=== PATIENT | female | born 1965 | race Caucasian/White ===

== ENCOUNTER 2020-09-19 19:07 | Inpatient (IN) | payer MEDICAID ==
[~2020-09-19] VITALS: Ht 157.5 cm; Wt 53.6 kg
--- NOTE | 2020-09-19 19:08 | NUR ---
ward 860 from [place] for nausea/vomiting. recently [facility] days ago for L foot wound care. , pt aaox4, denies sob. denies cp. placed on monitor, vss, pending er provider cecil
[2020-09-19] MEDS ORDERED: ONDANSETRON HCL/PF 4 MG/2 ML VIAL ONE (19:22)
--- NOTE | 2020-09-19 19:28 | NUR ---
pt noted soiled on arrival via ems, pt cleaned, repositioned and provided wound care.
[2020-09-19] MEDS ORDERED: ONDANSETRON HCL/PF 4 MG/2 ML VIAL IVP ONE (19:30)
[2020-09-19] MEDS ORDERED: IV NS 0.9% 1,000 ML BAG IV ONE (19:30)
[2020-09-19 19:47] LABS: BASOPHILS # (AUTO) 0.1 /CMM (0.0-0.2); BASOPHILS % (AUTO) 1.1 % (0.0-2.0); EOSINOPHILS % (AUTO) 2.2 % (0.0-6.0); HEMATOCRIT 37 % (33-45); HEMOGLOBIN 11.7 g/dL (11.5-14.8); LYMPHOCYTES # (AUTO) 1.9 /CMM (0.8-4.8); LYMPHOCYTES % (AUTO) 14.7 % (20.0-44.0); MEAN CORPUSCULAR HGB CONC 32 g/dl (31.0-36.0); MEAN CORPUSCULAR VOLUME 81 fL (82-100); MONOCYTES # (AUTO) 0.9 /CMM (0.1-1.30); MONOCYTES % (AUTO) 7.2 % (2.0-12.0); NEUTROPHILS # (AUTO) 9.8 /CMM (1.8-8.9); NEUTROPHILS % (AUTO) 74.8 % (43.0-81.0); PLATELET COUNT (AUTO) 478 /CMM (150-450); RED BLOOD CELL COUNT(AUTO) 4.52 MIL/uL (4.0-5.2); WHITE BLOOD COUNT (AUTO) 13.1 K/uL (4.3-11.0)
[2020-09-19 19:58] LABS: CALCIUM, SERUM 8.5 mg/dL (8.5-10.1); CARBON DIOXIDE 32 mmol/L (21-32); CHLORIDE 102 mmol/L (98-107); CREATININE 0.8 mg/dL (0.6-1.3); GLUCOSE 333 mg/dL (74-106); POTASSIUM 4.7 mmol/L (3.5-5.1); SODIUM SERUM 135 mmol/L (136-145); UREA NITROGEN, BLOOD 16 mg/dL (7-18)
[2020-09-19] MEDS ORDERED: VANCOMYCIN 1 GM in IV D5W 250 ML IV ONE (20:00)
[2020-09-19] MEDS ORDERED: CEFEPIME 1 GM in IV D5W 50 ML IV ONE (20:00)
[2020-09-19 20:04] LABS: ALANINE AMINOTRANSFERASE 11 U/L (12-78); ALBUMIN 1.7 g/dL (3.4-5.0); ALCOHOL, BLOOD < 3 mg/dL (0-0); ALKALINE PHOSPHATASE 147 U/L (46-116); ASPARTATE AMINOTRANSFERASE 17 U/L (15-37); BILIRUBIN,DIRECT 0.1 mg/dL (0.0-0.2); BILIRUBIN,TOTAL 0.2 mg/dL (0.2-1.0); LIPASE 168 U/L (73-393); TOTAL PROTEIN, SERUM 8.1 g/dL (6.4-8.2)
--- NOTE | 2020-09-19 20:12 | NUR ---
COVID SWAB SENT
[2020-09-19] MEDS ORDERED: VANCOMYCIN 1 GM VIAL ONE (20:33)
--- NOTE | 2020-09-19 21:24 | NUR ---
pt assigned to 111-1
--- NOTE | 2020-09-19 21:48 | NUR ---
REPORT GIVEN TO ANKUSH DICKENS FOR MELVIN PT WILL BE TRANSPORTED TO 1ST FLOOR
[2020-09-19] MEDS ORDERED: ZOLPIDEM TARTRATE 5 MG TABLET PO PRN (22:00)
[2020-09-19] MEDS ORDERED: MAGNESIUM HYDROXIDE 30 ML UDC PO PRN (22:00)
[2020-09-19] MEDS ORDERED: Z GUARD REMEDY 2 OZ OINT TP PRN (22:00)
[2020-09-20] VITALS: BP 154/79
[2020-09-20] MEDS: ENOXAPARIN SODIUM 40 MG/0.4 ML DISP.SYRIN SQ SCH ×2 (00:23→22:00)
[2020-09-20] MEDS: HYDROCODONE/APAP 5/325MG TABLET PO PRN ×4 (00:34→22:32)
--- NOTE | 2020-09-20 02:49 | NUR ---
RN notes Admitted from ER via stretcher accompanied by two staff with diagnosis of wounds and bilateral lower extremities cellulities. Alert and oriented, able to verbalize needs. On room air, tolerating well. Breathing even and unlabored. Complaint of pain at right hip and bilateral lower extremities. [place] given and ambien, with help. Skin assessment done (see pictures). Vital signs WNL. Kept clean and dry. Needs attended. Will endorse to next shift for continuity of care.
[2020-09-20 04:00] VITALS: BP 146/63
[2020-09-20 06:04] LABS: CALCIUM, SERUM 7.7 mg/dL (8.5-10.1); CREATININE 0.9 mg/dL (0.6-1.3); MAGNESIUM 1.4 mg/dL (1.8-2.4); PHOSPHORUS 4.3 mg/dL (2.5-4.9); POTASSIUM 4.6 mmol/L (3.5-5.1)
[2020-09-20 06:10] LABS: BASOPHILS # (AUTO) 0.2 /CMM (0.0-0.2); BASOPHILS % (AUTO) 1.2 % (0.0-2.0); EOSINOPHILS % (AUTO) 3.1 % (0.0-6.0); HEMATOCRIT 32 % (33-45); HEMOGLOBIN 10.1 g/dL (11.5-14.8); LYMPHOCYTES # (AUTO) 3.4 /CMM (0.8-4.8); LYMPHOCYTES % (AUTO) 24.9 % (20.0-44.0); MEAN CORPUSCULAR HGB CONC 32 g/dl (31.0-36.0); MEAN CORPUSCULAR VOLUME 82 fL (82-100); MONOCYTES # (AUTO) 1.1 /CMM (0.1-1.30); MONOCYTES % (AUTO) 8.2 % (2.0-12.0); NEUTROPHILS # (AUTO) 8.6 /CMM (1.8-8.9); NEUTROPHILS % (AUTO) 62.6 % (43.0-81.0); PLATELET COUNT (AUTO) 394 /CMM (150-450); RED BLOOD CELL COUNT(AUTO) 3.89 MIL/uL (4.0-5.2); WHITE BLOOD COUNT (AUTO) 13.7 K/uL (4.3-11.0)
--- NOTE | 2020-09-20 07:05 | NUR ---
RN OPENING NOTES RECEIVED PT AWAKE, A/O X4. STABLE ON ROOM AIR. NO SOB OR ANY SIGNS OF DISTRESS. WHEELCHAIR BOUND. IV ACCESS AT LAC #20 INTACT, PATENT AND FLUSHED. SAFETY MEASURES IN PLACE. CALL LIGHT WITHIN REACH. BED LOCKED AND AT LOWEST POSITION WITH SIDE RAILS UP X3. WILL CONTINUE TO MONITOR.
[2020-09-20 08:00] VITALS: BP 146/55
--- NOTE | 2020-09-20 08:00 | NUR ---
RN NOTES COMPLAINS OF PAIN FOR LOWER EXTREMITIES. PAIN SCALE OF 7/10. NORCO GIVEN ORDERED.
--- NOTE | 2020-09-20 09:55 | NUR ---
WOUND CARE CONSULT: PT PRESENTS WITH MULTIPLE WOUNDS INCLUDING BILATERAL BUTTOCK STAGE 4 ULCERS AND FOOT WOUNDS, PRESENT ON ADMISSION. LOWER LEG REDNESS AND SWELLING NOTED, PRESENT ON ADMISSION. SURGICAL AND DPM CONSULTS CALLED TO DR ROBB AND DR MCCOLLUM. RECOMMENDATIONS MADE FOR SKIN PROTECTION. DISCUSSED WITH NURSING STAFF. MD IN AGREEMENT WITH PLAN OF CARE. PT TO BE PLACED ON MATHESON ISOFLEX LOW AIRLOSS BED. Addendum: 09/20/20 at 1005 by MALIK VALVERDE WNDNU CORRECTION: PT TO BE PLACED ON FIRST STEP LOW AIRLOSS MATTRESS.
[2020-09-20] MEDS: Magnesium 1GM/D5W 100ML PREMIX 100 ML IV SCH ×4 (10:50→13:00)
--- NOTE | 2020-09-20 11:32 | NUR ---
Social Service Consult: director of maternity services consult requested for homelessness. Patient is a 54-year-old, female. SW met with the patient at her hospital bed in the med-surg unit. Patient was alert and oriented x4. Patient was resting. Per patients chart, patient was brought to the hospital by ambulance on 09/19/20 for nausea and vomiting. Patient recently left AMA from [facility] and has been on the streets for the last 3 days. Patient is currently homeless and stated that she has been homeless for the last 7 years. 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 Patient currently has no source of income or social support. SW asked patient if she has visited shelters in the past and patient stated that she has been to shelters before and does not plan to go to one in the future. Patient feels that she can take better care of herself on the streets and mentioned that the streets are safer. Patient stated that she is independent with her ADL's. SW assessed patients history of substance use and patient stated that she smokes cigarettes occasionally (5-6 cigarettes) when she can obtain them. Patient stated that she has been smoking cigarettes since age 11. SW asked patient if she has a history of mental illness and patient denies history. Patient denies hallucinations or delusions. Patient denies suicidal or homicidal ideation. SW asked patient if he is currently experiencing suicidal ideation and patient stated that he is currently having suicidal ideation with a plan to jump into traffic and has been feeling depressed. Patient denies any homicidal ideation. SW discussed homeless and substance use resources with the patient. Patient declined the resources and stated, I dont need them, Amber been to these places before. SW asked patient to sign the homeless waiver. Patient signed the homeless waiver and SW filed the waiver in the patients chart. SW discussed discharge plan with the patient and patient stated that she will return to the streets. Patient stated that she can take the bus and will be using her wheelchair. PLAN: Patient stated that she will return to prior living arrangements on the streets. No further SS intervention at this time, however SW will remain available as needed. Addendum: 09/27/20 at 1551 by KAM LAUGHLIN Note regarding suicidal ideation was entered incorrectly. Patient is not suicidal.
[2020-09-20] MEDS: ALPRAZOLAM 0.25 MG TABLET PO PRN (12:27)
--- NOTE | 2020-09-20 12:36 | NUR ---
RN NOTES PT SAID SHES HAVING ANXIETY. PAGED DR. GRAHAM, ORDERED XANAX .25 Q12 PRN. CARRIED OUT. PT SPIT OUT THE MEDICATION. WASTED WITH CHARGE NURSE.
--- NOTE | 2020-09-20 14:00 | NUR ---
RN NOTES PT SAYING BAD WORDS TOWARDS DOCTOR, NURSES AND FIELD CONTACT TECHNICIAN. PT IS VERY NON COMPLIANT, WANTED TO SIGN AMA FORM. INFORMED DR. GRAHAM, ODERED PSYCH CONSULT. CARRIED OUT.
--- NOTE | 2020-09-20 14:10 | NUR ---
RN NOTES PT DOESN'T WANT TO BE TOUCHED, DOES NOT WANT TO BE CLEANED. CURSING NURSES AND HEARING SCREENER. CHARGE NURSE AWARE.
[2020-09-20 16:00] VITALS: BP 141/69
[2020-09-20] MEDS ORDERED: SILVER SULFADIAZINE CREAM 400 GM JAR TP SCH (18:30)
--- NOTE | 2020-09-20 18:46 | NUR ---
RN CLOSING NOTES NO SIGNIFICANT CHANGES THROUGHOUT THE SHIFT. STABLE ON ROOM AIR. NO SOB. NO PAIN REPORTED AT THIS TIME. PT REQUESTED TO BE CLEANED. REFUSED TO PUT DRY DRESSING ON BLE. REFUSED TO SIGN CONSENT FOR DEBRIDEMENT AT THIS MOMENT. ALL DUE MEDS GIVEN. NEEDS ATTENDED. SAFETY MEASURES STILL IN PLACE. WILL ENDORSE TO NIGHT RN FOR MELVIN.
[2020-09-20] MEDS: SILVER SULFADIAZINE CREAM 25 GM TUBE TP SCH (18:56)
[2020-09-20] MEDS: CEFEPIME 2 GM in IV D5W 100 ML IV SCH (18:57)
--- NOTE | 2020-09-20 19:30 | NUR ---
RN NOTE NOTED PATIENT BEING COMBATIVE, SCREAMING, COMPLAINS OF PAIN SAYING NORCO WAS INEFFECTIVE AND REQUESTING FOR A STRONGER PAIN MEDICATION. DR HUFF WAS NOTIFIED. NO NEW ORDERS RECEIVED. LOGISTICS OPERATIONS DIRECTOR AWARE.
--- NOTE | 2020-09-20 19:30 | NUR ---
RN NOTE RECEIVED PATIENT IN BED, VERY COMBATIVE AND SAYS INAPPROPRIATE WORDS, KEPT ASKING FOR PAIN MEDICATON WHICH WAS ADMINISTERED AT 1832. EXPLAINED NEXT DOSE NOT DUE UNTIL AFTER 4HRS. PATIENT'S BREATHING IS EVEN AND UNLABORED. SATURATION 95% ON ROOM AIR, HR IS 78. NOTED IV SITE AT RAC 20G, PATENT AND FLUSHING, NO S/S OF INFECTION OR INFILTRATION. MULTIPLE WOUND NOTED AT BLE. SAFETY MEASURES IMPLEMENTED. PATIENT BED ALARM IS ON. HEAD OF BED ELEVATED. BED IS LOCKED, IN LOWEST POSITION AND SIDE RAILS UP. CALL LIGHT WITHIN REACH OF THE PATIENT. WILL CONTINUE TO MONITOR AND REASSESS FOR ANY CHANGES.
[2020-09-20] MEDS: VANCOMYCIN HCL 0.75 GM in IV D5W 250 ML IV SCH (19:38)
[2020-09-20 20:00] VITALS: BP 147/67
--- NOTE | 2020-09-20 21:00 | NUR ---
RN NOTE PATIENT REFUSED LOW AIRLOSS MATTRESS AND WOUND TREATMENT. KEPT SCREAMING AND CURSING EVERYONE. SAID SHE WANTED TO LEAVE THE HOSPITAL. ASKED TO SIGN AMA FORM BUT REFUSED. WILL CONTINUE TO MONITOR PATIENT.
[2020-09-21] MEDS: diphenhydrAMINE HCL 25 MG CAPSULE PO PRN ×2 (00:58→19:39)
[2020-09-21] MEDS: HYDROCODONE/APAP 5/325MG TABLET PO PRN ×3 (05:04→23:28)
[2020-09-21 06:39] LABS: CALCIUM, SERUM 7.4 mg/dL (8.5-10.1); CREATININE 0.8 mg/dL (0.6-1.3); MAGNESIUM 1.6 mg/dL (1.8-2.4); POTASSIUM 4.7 mmol/L (3.5-5.1)
--- NOTE | 2020-09-21 07:15 | NUR ---
RN OPENING NOTES PATIENT RECEIVED RESTING IN SEMI-FOWLERS POSITION. PATIENT ON ROOM AIR TOLERATING WELL. NO SOB OR PAIN REPORTED AT THIS TIME. SAFETY MEASURES IMPLEMENTED, BED LOCKED IN LOWEST POSITION, SIDE RAILS UP X2, CALL LIGHT WITHIN REACH. WILL CONTINUE TO MONITOR AND PROVIDE CARE THROUGHOUT SHIFT.
--- NOTE | 2020-09-21 07:27 | NUR ---
RN NOTE NO SIGNIFICANT CHANGES THROUGHOUT THE SHIFT. STABLE ON ROOM AIR. NO SOB. REQUESTED NORCO AT 0504. REFUSED WOUND TREATMENT AND LOW AIRLOSS MATTRESS. CONSENT FOR WOUND DEBRIDEMENT WAS SIGNED, PLACED ON CHART. SAFETY MEASURES STILL IN PLACE. ENDORSED TO FRANKY DICKENS FOR CONTINUATION OF CARE.
[2020-09-21 08:00] VITALS: BP 169/74
[2020-09-21] MEDS: VANCOMYCIN HCL 0.75 GM in IV D5W 250 ML IV SCH ×3 (08:00→16:00)
[2020-09-21] MEDS: SILVER SULFADIAZINE CREAM 25 GM TUBE TP SCH ×2 (09:00→17:09)
[2020-09-21] MEDS: DAKINS QUARTER STRENGTH (0.125%) 480 ML BOTTLE TOP SCH (09:00)
[2020-09-21] MEDS: THERAHONEY GEL 1.5 OZ TUBE TP SCH (09:00)
[2020-09-21] MEDS: CEFEPIME 2 GM in IV D5W 100 ML IV SCH ×2 (09:00→21:19)
[2020-09-21] MEDS: Magnesium 1GM/D5W 100ML PREMIX 100 ML IV SCH ×2 (09:30→10:30)
--- NOTE | 2020-09-21 10:36 | NUR ---
patient refuses iv antibiotics and wound care treatment. patient persistently states to leave her alone and do not touch her. education regarding wound care and antibiotic treatment as well as pros and cons of refusing treatment provided for client. will continue to persuade patient to continue hospitalization treatment.
--- NOTE | 2020-09-21 14:14 | NUR ---
patient refused vital signs.
[2020-09-21] MEDS: ALPRAZOLAM 0.25 MG TABLET PO PRN (17:08)
--- NOTE | 2020-09-21 18:58 | NUR ---
RN CLOSING NOTES PATIENT RESTING IN SEMI-FOWLERS POSITION. PATIENT ON ROOM AIR TOLERATING WELL. NO SOB OR PAIN REPORTED AT THIS TIME. SAFETY MEASURES IMPLEMENTED, BED LOCKED IN LOWEST POSITION, SIDE RAILS UP X2, CALL LIGHT WITHIN REACH. VANCOMYCIN ADMINISTERED AFTER PATIENT HAD REFUSED EARLIER IN AM AT 1600. WILL ENDORSE CARE TO UPCOMING SHIFT.
--- NOTE | 2020-09-21 19:00 | NUR ---
RN NOTE RECEIVED PATIENT IN BED, AO X 4, BREATHING IS EVEN AND UNLABORED. SATURATION 94% ON ROOM AIR, HR IS 73. NOTED IV SITE AT RAC 20G, PATENT AND FLUSHING, NO S/S OF INFECTION OR INFILTRATION. MULTIPLE WOUNDS NOTED AT BLE, DRESSING INTACT. SAFETY MEASURES IMPLEMENTED. PATIENT BED ALARM IS ON. HEAD OF BED ELEVATED. BED IS LOCKED, IN LOWEST POSITION AND SIDE RAILS UP. CALL LIGHT WITHIN REACH OF THE PATIENT. WILL CONTINUE TO MONITOR AND REASSESS FOR ANY CHANGES.
--- NOTE | 2020-09-21 19:30 | NUR ---
RN NOTE PER FRANKY DICKENS, PATIENT REFUSED 0800 DOSE OF VANCOMYCIN IV, PATIENT AGREED TO RECEIVED THE DOSE AND WAS ADMINISTERED AT 1600. TELEPHONE CALL TO PHARMACY AT EXT 0428, NO ANSWER AFTER SEVERAL ATTEMPTS. TELEPHONE CALL TO [facility] AT [phone] AT 1932, SPOKE TO ZORA REGARDING TIME OF NEXT DOSE, WAS ADVISED TO GIVE NEXT DOSE AT 0400, AND THERE IS NO NEED FOR TROUGH 1 HOUR PRIOR TO 0400 DOSE PATIENT HAS A MISSED DOSE. ID MD, INDEX CLERK MADE AWARE.
[2020-09-21 20:00] VITALS: BP 169/70
[2020-09-21] MEDS: ACETAMINOPHEN 325 MG TABLET PO PRN (21:14)
[2020-09-21] MEDS: ENOXAPARIN SODIUM 40 MG/0.4 ML DISP.SYRIN SQ SCH (21:26)
[2020-09-22] MEDS: VANCOMYCIN HCL 0.75 GM in IV D5W 250 ML IV SCH ×2 (04:21→16:00)
[2020-09-22 06:28] LABS: CALCIUM, SERUM 7.9 mg/dL (8.5-10.1); CREATININE 0.8 mg/dL (0.6-1.3); MAGNESIUM 1.4 mg/dL (1.8-2.4); POTASSIUM 4.5 mmol/L (3.5-5.1)
--- NOTE | 2020-09-22 07:20 | NUR ---
RN OPENING NOTES PATIENT RECEIVED RESTING IN RIGHT LATERAL POSITION. PATIENT ON ROOM AIR TOLERATING WELL. NO SOB OR PAIN REPORTED AT THIS TIME. LEFT WRIST 22 G NOTED PATENT AND INTACT. SAFETY MEASURES IMPLEMENTED, BED LOCKED IN LOWEST POSITION, SIDE RAILS UP X2, CALL LIGHT WITHIN REACH. WILL CONTINUE TO MONITOR AND PROVIDE CARE THROUGHOUT SHIFT.
[2020-09-22 08:00] VITALS: BP 174/67
[2020-09-22] MEDS: CEFEPIME 2 GM in IV D5W 100 ML IV SCH ×2 (08:45→20:55)
[2020-09-22] MEDS: ALPRAZOLAM 0.25 MG TABLET PO PRN ×2 (08:45→17:25)
[2020-09-22] MEDS: HYDROCODONE/APAP 5/325MG TABLET PO PRN ×2 (08:45→17:17)
[2020-09-22] MEDS: DAKINS QUARTER STRENGTH (0.125%) 480 ML BOTTLE TOP SCH (09:00)
[2020-09-22] MEDS: SILVER SULFADIAZINE CREAM 25 GM TUBE TP SCH ×2 (09:00→17:17)
[2020-09-22] MEDS: THERAHONEY GEL 1.5 OZ TUBE TP SCH (09:00)
[2020-09-22] MEDS: Magnesium 1GM/D5W 100ML PREMIX 100 ML IV SCH ×4 (10:38→13:00)
[2020-09-22] MEDS: AMLODIPINE BESYLATE 10 MG TABLET PO SCH (10:38)
[2020-09-22] MEDS: ONDANSETRON HCL/PF 4 MG/2 ML VIAL IVP PRN ×2 (11:32→22:06)
[2020-09-22] MEDS: BLOOD SUGAR DIAGNOSTIC 1 EACH STRIP IN SCH ×3 (12:00→21:50)
[2020-09-22] MEDS ORDERED: Magnesium 1GM/D5W 100ML PREMIX 100 ML IV SCH (12:00)
[2020-09-22] MEDS ORDERED: DEXTROSE 50%-WATER 50 ML DISP.SYRIN IV PRN (12:00)
[2020-09-22] MEDS ORDERED: *INSULIN REGULAR(HUMULIN R)HUM 100 UNIT/ML VIAL SQ PRN (12:00)
[2020-09-22] MEDS: METFORMIN 500 MG TABLET PO SCH ×2 (12:00→17:00)
[2020-09-22] MEDS: ACETAMINOPHEN 325 MG TABLET PO PRN ×2 (12:07→20:55)
[2020-09-22] MEDS: GLUCERNA SHAKE 237 ML CAN PO SCH (17:00)
--- NOTE | 2020-09-22 19:00 | NUR ---
RN OPENING NOTE RECEIVED PATIENT IN BED RESTING ALERT ORIENTED X4 VERBALLY RESPONSIVE ON ROOM AIR O2:93% IV SITE IS ON LEFT UPPER ARM MIDLINE INTACT PATENT,INCONTINENT TO BOWEL/BLADDER SAFETY MEASURE IMPLEMENT CALL LIGHT WITHIN REACH,BED IN LOW POSITION AND LOCKED,BED ALARM IS ON CONTINUE TO MONITOR.
--- NOTE | 2020-09-22 19:06 | NUR ---
RN CLOSING NOTES PATIENT RECEIVED RESTING IN RIGHT LATERAL POSITION. PATIENT ON ROOM AIR TOLERATING WELL. NO SOB OR PAIN REPORTED AT THIS TIME. LEFT WRIST 22 G NOTED PATENT AND INTACT. SAFETY MEASURES IMPLEMENTED, BED LOCKED IN LOWEST POSITION, SIDE RAILS UP X2, CALL LIGHT WITHIN REACH. WILL ENDORSE CARE TO UPCOMING SHIFT.
[2020-09-22 20:00] VITALS: BP 145/67
[2020-09-22] MEDS: ENOXAPARIN SODIUM 40 MG/0.4 ML DISP.SYRIN SQ SCH (21:53)
[2020-09-22] MEDS: INSULIN REGULAR, HUMAN 100 UNIT/ML 3 ML VIAL SQ PRN (22:04)
[2020-09-23] MEDS: HYDROCODONE/APAP 5/325MG TABLET PO PRN ×2 (00:40→11:43)
[2020-09-23] MEDS: VANCOMYCIN HCL 0.75 GM in IV D5W 250 ML IV SCH ×2 (03:23→16:41)
--- NOTE | 2020-09-23 06:35 | NUR ---
RN OPENING NOTE PATIENT REMAINS ON ALERT ORIENTED X4 VERBALLY RESPONSIVE ON ROOM AIR NO SOB NOT ACUTE DISTRESS NOTED,ALL DUE MEDS GIVEN MD ORDERED KEEP CLEAN AND DRY ALL THE TIME,ENDORSE NEXT COMING SHIFT FOR CONTINUATION OF CARE.
--- NOTE | 2020-09-23 07:30 | NUR ---
MS RN AM NOTE RECEIVED PATIENT IN BED, AO X 4, ON ROOM AIR, RESPIRATION UNLABORED. SATURATION 96%, DENIES PAIN AT THIS TIME, LEFT UPPER ARM MIDLINE, FLUSHES WELL, SITE CLEAR, SEE NURSING FLOWSHEET FOR SKIN ISSUES, MULTIPLE WOUNDS NOTED AT BLE, DRESSING INTACT. SAFETY MEASURES IMPLEMENTED. PATIENT BED ALARM IS ON. HEAD OF BED ELEVATED. BED IS LOCKED, IN LOWEST POSITION AND SIDE RAILS UP. CALL LIGHT WITHIN REACH OF THE PATIENT. PLAN OF CARE DISCUSSED WITH PATIENT, NEEDS FURTHER TEACHINGS.WILL CONTINUE TO MONITOR AND REASSESS FOR ANY CHANGES.
[2020-09-23 07:31] LABS: CALCIUM, SERUM 8.2 mg/dL (8.5-10.1); CREATININE 0.8 mg/dL (0.6-1.3); MAGNESIUM 2.3 mg/dL (1.8-2.4); POTASSIUM 4.7 mmol/L (3.5-5.1)
[2020-09-23] MEDS: BLOOD SUGAR DIAGNOSTIC 1 EACH STRIP IN SCH ×4 (07:44→21:46)
--- NOTE | 2020-09-23 07:45 | NUR ---
RN NOTES BLOOD SUGAR CHECKED 146 MG/DL, REFUSED INSULIN, REFUSED BREAKFAST.
[2020-09-23] MEDS: GLUCERNA SHAKE 237 ML CAN PO SCH ×3 (07:58→16:41)
[2020-09-23 08:00] VITALS: BP 183/76
[2020-09-23] MEDS: AMLODIPINE BESYLATE 10 MG TABLET PO SCH (08:41)
[2020-09-23] MEDS: METFORMIN 500 MG TABLET PO SCH ×2 (08:41→16:41)
[2020-09-23] MEDS: DAKINS QUARTER STRENGTH (0.125%) 480 ML BOTTLE TOP SCH (08:42)
[2020-09-23] MEDS: THERAHONEY GEL 1.5 OZ TUBE TP SCH (08:42)
[2020-09-23] MEDS: SILVER SULFADIAZINE CREAM 25 GM TUBE TP SCH ×2 (08:42→16:42)
[2020-09-23] MEDS: CEFEPIME 2 GM in IV D5W 100 ML IV SCH ×2 (08:43→21:46)
[2020-09-23] MEDS ORDERED: AMLODIPINE BESYLATE 10 MG TABLET PO SCH (09:00)
[2020-09-23 09:30] VITALS: BP 153/78
--- NOTE | 2020-09-23 09:30 | NUR ---
RN NOTES DUE MEDS GIVEN
[2020-09-23] MEDS: LOSARTAN POTASSIUM 50 MG TABLET PO SCH (11:33)
[2020-09-23] MEDS: INSULIN REGULAR, HUMAN 100 UNIT/ML 3 ML VIAL SQ PRN (11:43)
[2020-09-23] MEDS: diphenhydrAMINE HCL 25 MG CAPSULE PO PRN (14:32)
[2020-09-23 16:00] VITALS: BP 120/69
[2020-09-23] MEDS: ACETAMINOPHEN 325 MG TABLET PO PRN (17:11)
--- NOTE | 2020-09-23 18:27 | NUR ---
MS RN CLOSING NOTE PATIENT RESTING IN BED, AO X 4, ON ROOM AIR, RESPIRATION UNLABORED. NO SOB, DENIES PAIN AT THIS TIME, LEFT UPPER ARM MIDLINE, FLUSHES WELL, SITE CLEAR, MULTIPLE WOUNDS NOTED AT BLE, DRESSING INTACT. DEBRIDEMENT DONE BY DR. MCCOLLUM EARLIER. SAFETY MEASURES IMPLEMENTED. PATIENT BED ALARM IS ON. HEAD OF BED ELEVATED. BED IS LOCKED, IN LOWEST POSITION AND SIDE RAILS UP. CALL LIGHT WITHIN REACH OF THE PATIENT. ALL NEEDS MET, NO OTHER SIGNIFICANT CHANGE IN CONDITION NOTED. WILL ENDORSE TO NEXT SHIFT FOR MELVIN.
--- NOTE | 2020-09-23 19:30 | NUR ---
RN OPENING NOTE REC'D PT IN BED. RESTING. EASILY AWAKENS. PT IS A/O X4. ON ROOM AIR, TOLERATING WELL. NO S/S OF DISTRESS OR SOB. PT IS MED SURG MONITORING. PT HAS CHERELLE MIDLINE, SALINE LOCK. FLUSHED. INTACT. DRESSINGS NOTED ON JOSE BUTTOCKS, JOSE FEET S/P DEBRIDEMENT TODAY. PT DENIES PAIN AT THIS TIME. SAFETY MEASURES IN PLACE. HOB ELEVATED. SIDE RAILS UP X2, BED LOCKED IN LOWEST POSITION. BED ALARM ON. CALL LIGHT WITHIN REACH. WILL CONT TO MONITOR
[2020-09-23 20:00] VITALS: BP 153/57
[2020-09-23] MEDS: ENOXAPARIN SODIUM 40 MG/0.4 ML DISP.SYRIN SQ SCH (21:48)
[2020-09-24] MEDS: diphenhydrAMINE HCL 25 MG CAPSULE PO PRN ×2 (01:16→12:30)
--- NOTE | 2020-09-24 01:16 | NUR ---
RN NOTE PT C/O OF ITCHINESS, REQUESTS MEDICATION. BENADRYL PRN ADMINISTERED ORDERED.
--- NOTE | 2020-09-24 02:58 | NUR ---
RN NOTE TRANSFERRED PT IN STALE CONDITION TO ROOM 309, WITH ALL BELONGINGS AND MEDICATIONS AT BEDSIDE. REPORT GIVEN TO FREEDOM DICKENS FOR CONTINUATION OF CARE. Addendum: 09/24/20 at 0339 by ALICIA BORRERO RN TRANSFERRED PT IN STABLE* CONDITION
--- NOTE | 2020-09-24 03:00 | NUR ---
MSREsther RECEIVED VIA BED 54 Y/O FEMALE DX OF LOWER EXT CELLULITIS. A/OX4, COOPERATIVE OF THIS TIME. ORIENTED TO ROOM FACILITY, OWN WHEELCHAIR AT BEDSIDE. NO NEEDS FOR NOW. CALL LIGHT WITHIN REACH.
[2020-09-24 03:17] VITALS: BP 164/64
[2020-09-24 03:30] VITALS: BP 164/64
--- NOTE | 2020-09-24 04:05 | NUR ---
MSRN HAVE ICU CN CHECKED MIDLINE PLACEMENT, UNABLE TO FLUSH. DRESSING CHANGED BY ICU CN, WAS ABLE TO OBTAIN BLOOD RETURN ABLE TO FLUSH, VANCOMYCIN CONTINUED. ALL NEEDS ATTENDED.
[2020-09-24] MEDS: VANCOMYCIN HCL 0.75 GM in IV D5W 250 ML IV SCH ×2 (04:14→15:00)
--- NOTE | 2020-09-24 06:52 | NUR ---
MSRN IV TO HL. REFUSED BLOOD DRAW OF THIS TIME. WANTED AFTER BREAKFAST.
[2020-09-24 08:00] VITALS: BP 156/92
--- NOTE | 2020-09-24 08:03 | NUR ---
MS RN OPENING NOTE RECEIVED PATIENT IN BED, RESTING. EASILY AWAKENS. A/O X4. ON ROOM AIR - TOLERATING WELL. NO DISTRESS OR SOB NOTED. IV ACCESS TO LEFT UA MIDLINE, SALINE LOCK. FLUSHED. INTACT. PATIENT DENIES PAIN AT THIS TIME. SAFETY MEASURES IN PLACE. HOB ELEVATED. SIDE RAILS UP X2, BED LOCKED IN LOWEST POSITION. BED ALARM ON. CALL LIGHT WITHIN REACH. WILL CONTINUE TO MONITOR
[2020-09-24] MEDS: CEFEPIME 2 GM in IV D5W 100 ML IV SCH ×2 (08:24→21:13)
[2020-09-24] MEDS: METFORMIN 500 MG TABLET PO SCH ×2 (08:25→16:41)
[2020-09-24] MEDS: BLOOD SUGAR DIAGNOSTIC 1 EACH STRIP IN SCH ×4 (08:26→21:13)
[2020-09-24] MEDS: GLUCERNA SHAKE 237 ML CAN PO SCH ×3 (08:27→17:11)
[2020-09-24] MEDS: INSULIN REGULAR, HUMAN 100 UNIT/ML 3 ML VIAL SQ PRN ×2 (08:31→17:20)
[2020-09-24] MEDS: LOSARTAN POTASSIUM 50 MG TABLET PO SCH (08:36)
[2020-09-24] MEDS: AMLODIPINE BESYLATE 10 MG TABLET PO SCH (08:36)
[2020-09-24] MEDS: DAKINS QUARTER STRENGTH (0.125%) 480 ML BOTTLE TOP SCH (08:38)
[2020-09-24] MEDS: THERAHONEY GEL 1.5 OZ TUBE TP SCH (08:39)
[2020-09-24] MEDS: SILVER SULFADIAZINE CREAM 25 GM TUBE TP SCH ×2 (09:01→17:23)
[2020-09-24] MEDS: HYDROCODONE/APAP 5/325MG TABLET PO PRN ×2 (10:48→21:23)
[2020-09-24 11:33] LABS: BASOPHILS # (AUTO) 0.1 /CMM (0.0-0.2); EOSINOPHILS % (AUTO) 4.8 % (0.0-6.0); HEMATOCRIT 31 % (33-45); HEMOGLOBIN 9.9 g/dL (11.5-14.8); LYMPHOCYTES # (AUTO) 1.7 /CMM (0.8-4.8); LYMPHOCYTES % (AUTO) 18.4 % (20.0-44.0); MEAN CORPUSCULAR HGB CONC 32 g/dl (31.0-36.0); MEAN CORPUSCULAR VOLUME 82 fL (82-100); MONOCYTES # (AUTO) 0.7 /CMM (0.1-1.30); MONOCYTES % (AUTO) 7.5 % (2.0-12.0); NEUTROPHILS # (AUTO) 6.3 /CMM (1.8-8.9); NEUTROPHILS % (AUTO) 68.3 % (43.0-81.0); PLATELET COUNT (AUTO) 309 /CMM (150-450); RED BLOOD CELL COUNT(AUTO) 3.78 MIL/uL (4.0-5.2); WHITE BLOOD COUNT (AUTO) 9.3 K/uL (4.3-11.0)
[2020-09-24 12:03] LABS: CREATININE 0.6 mg/dL (0.6-1.3); MAGNESIUM 1.5 mg/dL (1.8-2.4); PHOSPHORUS 4.2 mg/dL (2.5-4.9); POTASSIUM 3.9 mmol/L (3.5-5.1)
[2020-09-24 16:00] VITALS: BP 153/69
--- NOTE | 2020-09-24 18:39 | NUR ---
MS RN CLOSING NOTE PATIENT CURRENTLY IN BED, AWAKE, A/O X4. STATES HER MIND IS FUZZY AND SOMETIMES CANNOT MANAGE TO FORMULATE WORDS. ON ROOM AIR - TOLERATING WELL. NO DISTRESS OR SOB NOTED. IV ACCESS TO LEFT UA MIDLINE, INTACT AND PATIENT, S/L. DENIES PAIN AT THIS TIME. WOUND CARE DONE. SAFETY MEASURES IN PLACE. HOB ELEVATED. SIDE RAILS UP X2, BED LOCKED IN LOWEST POSITION. BED ALARM ON. CALL LIGHT WITHIN REACH. WILL ENDORSE TO FISCAL TECHNICIAN NURSE FOR MELVIN.
--- NOTE | 2020-09-24 19:30 | NUR ---
MS RN OPENING NOTE RECEIVED PATIENT IN BED. A/OX4. TOLERATING ROOM AIR. RESPIRATIONS ARE EVEN AND UNLABORED. NO S/S SOB NOTED. NO C/O PAIN AT THIS TIME. IN NO APPARENT DISTRESS. IV ACCESS IN CHERELLE MIDLINE PATENT AND SALINE LOCKED. BED IS LOW AND LOCKED, HOB ELEVATED IN SEMI FOWLERS, SIDE RAILS UP X2, CALL LIGHT WITHIN REACH. WILL CONTINUE TO MONITOR THROUGHOUT SHIFT.
[2020-09-24 20:00] VITALS: BP 146/71
[2020-09-24 20:32] VITALS: BP 146/71
--- NOTE | 2020-09-24 21:10 | NUR ---
MS RN NOTE INFORMED DIRECTOR FRAUD JENNIFER PALACIOS THAT PATIENT HAS LOVENOX 40MG SCHEDULE BUT H/H IS 9.9 /. IF LOVENOX SHOULD BE HELD. NO SIGNS OF BLEEDING. SHANE PALACIOS STATES OK TO GIVE.
[2020-09-24] MEDS: ENOXAPARIN SODIUM 40 MG/0.4 ML DISP.SYRIN SQ SCH (21:21)
[2020-09-25 03:24] LABS: BASOPHILS # (AUTO) 0.1 /CMM (0.0-0.2); BASOPHILS % (AUTO) 1.3 % (0.0-2.0); EOSINOPHILS % (AUTO) 5.9 % (0.0-6.0); HEMATOCRIT 35 % (33-45); HEMOGLOBIN 11.1 g/dL (11.5-14.8); LYMPHOCYTES # (AUTO) 2.7 /CMM (0.8-4.8); LYMPHOCYTES % (AUTO) 29.4 % (20.0-44.0); MEAN CORPUSCULAR HGB CONC 32 g/dl (31.0-36.0); MEAN CORPUSCULAR VOLUME 81 fL (82-100); MONOCYTES # (AUTO) 0.7 /CMM (0.1-1.30); MONOCYTES % (AUTO) 7.6 % (2.0-12.0); NEUTROPHILS # (AUTO) 5.2 /CMM (1.8-8.9); NEUTROPHILS % (AUTO) 55.8 % (43.0-81.0); PLATELET COUNT (AUTO) 371 /CMM (150-450); RED BLOOD CELL COUNT(AUTO) 4.25 MIL/uL (4.0-5.2); WHITE BLOOD COUNT (AUTO) 9.3 K/uL (4.3-11.0)
[2020-09-25 03:45] LABS: CALCIUM, SERUM 8.6 mg/dL (8.5-10.1); CREATININE 0.7 mg/dL (0.6-1.3); POTASSIUM 4.3 mmol/L (3.5-5.1)
[2020-09-25] MEDS: VANCOMYCIN HCL 0.75 GM in IV D5W 250 ML IV SCH (04:00)
[2020-09-25] MEDS: BLOOD SUGAR DIAGNOSTIC 1 EACH STRIP IN SCH ×2 (06:35→11:32)
--- NOTE | 2020-09-25 06:40 | NUR ---
MS RN CLOSING NOTE PATIENT RESTING IN BED. A/OX4. REMAINS TOLERATING ROOM AIR. NO RESP DISTRESS. MANAGED PAIN WITH NORCO 5 FOR HEADACHE AND FOOT PAIN. NO DISTRESS. IV ACCESS MAINTAINED IN CHERELLE MIDLINE. BED REMAINS LOW AND LOCKED, HOB ELEVATED IN SEMI FOWLERS, SIDE RAILS UP X2, CALL LIGHT WITHIN REACH. WILL ENDORSE TO ONCOMING SHIFT.
--- NOTE | 2020-09-25 07:33 | NUR ---
MS RN OPENING NOTE PATIENT RESTING IN BED. A/OX4. REMAINS TOLERATING ROOM AIR. NO RESP DISTRESS. MANAGED PAIN WITH NORCO 5 FOR HEADACHE AND FOOT PAIN. NO DISTRESS. IV ACCESS MAINTAINED IN CHERELLE MIDLINE. BED REMAINS LOW AND LOCKED, HOB ELEVATED IN SEMI FOWLERS, SIDE RAILS UP X2, CALL LIGHT WITHIN REACH AND ANSWERED PROMPTLY.
[2020-09-25 07:50] VITALS: BP 162/84
[2020-09-25 08:00] VITALS: BP 162/84
[2020-09-25 08:42] VITALS: BP 162/84
[2020-09-25] MEDS: LOSARTAN POTASSIUM 50 MG TABLET PO SCH (08:42)
[2020-09-25] MEDS: METFORMIN 500 MG TABLET PO SCH (08:42)
[2020-09-25] MEDS: DAKINS QUARTER STRENGTH (0.125%) 480 ML BOTTLE TOP SCH (08:42)
[2020-09-25] MEDS: AMLODIPINE BESYLATE 10 MG TABLET PO SCH (08:42)
[2020-09-25] MEDS: SILVER SULFADIAZINE CREAM 25 GM TUBE TP SCH (08:47)
[2020-09-25] MEDS: THERAHONEY GEL 1.5 OZ TUBE TP SCH (08:47)
[2020-09-25] MEDS: GLUCERNA SHAKE 237 ML CAN PO SCH ×2 (08:50→11:46)
[2020-09-25] MEDS: CEFEPIME 2 GM in IV D5W 100 ML IV SCH (08:50)
[2020-09-25] MEDS: ALPRAZOLAM 0.25 MG TABLET PO PRN (11:32)
[2020-09-25] MEDS ORDERED: VANCOMYCIN HCL 0.75 GM in IV D5W 250 ML IV SCH (14:00)
--- NOTE | 2020-09-25 17:50 | NUR ---
PATIENT LEFT AMA AT 1750 , AMA FORM SIGNED, BELONGINGS ACCOUNTED FOR , REFUSED GROUP HOME AND OTHER RESOURCES. MIDLINE SAFELY REMOVED, CLOTHES GIVEN TO HER AND ESCORTED DOWN AND OUTSIDE ON WHEELCHAIR.
--- NOTE | 2020-09-25 19:21 | NUR ---
RN NOTES PULLED OUT .25MG DOSE OF XANAX FROM [facility], PATIENT SAW AND REFUSED MEDICATION. RETURNED TO [facility] TO WASTE, ACCIDENTLY SELECTED WASTE .5MG INSTEAD OF .25MG DOSE OF XANAX, WITNESS WAS YESSENIA NASSAR RN
== END 2020-09-25 18:00 | disposition left against medical advice (07) | DRG 383 ==
LOC: ER 19:09 → MEDSG1 21:44 → MED 09-24 02:48
PROVIDERS: ADMIT Nurse Practitioner Acute Care; ATTEND Family Medicine
PROC: 05HC33Z Insertion of Infusion Device into Left Basilic Vein, Percutaneous Approach (ICD-10-PCS; 2020-09-22)
PROC: 0JBR0ZZ Excision of Left Foot Subcutaneous Tissue and Fascia, Open Approach (ICD-10-PCS; principal; 2020-09-23)
PROC: 0JBQ0ZZ Excision of Right Foot Subcutaneous Tissue and Fascia, Open Approach (ICD-10-PCS; 2020-09-23)
DX: L03.115 Cellulitis of right lower limb (principal); E43 Unspecified severe protein-calorie malnutrition; L89.224 Pressure ulcer of left hip, stage 4; L89.214 Pressure ulcer of right hip, stage 4; R53.2 Functional quadriplegia; D68.69 Other thrombophilia; E11.51 Type 2 diabetes mellitus with diabetic peripheral angiopathy without gangrene; E11.621 Type 2 diabetes mellitus with foot ulcer; E11.65 Type 2 diabetes mellitus with hyperglycemia; E87.0 Hyperosmolality and hypernatremia; L03.116 Cellulitis of left lower limb; Z59.0 Homelessness; I10 Essential (primary) hypertension; Z68.21 Body mass index [BMI] 21.0-21.9, adult; Z99.3 Dependence on wheelchair; L97.529 Non-pressure chronic ulcer of other part of left foot with unspecified severity; L97.519 Non-pressure chronic ulcer of other part of right foot with unspecified severity; E87.1 Hypo-osmolality and hyponatremia; I87.2 Venous insufficiency (chronic) (peripheral); Z91.14 Patient's other noncompliance with medication regimen; D72.829 Elevated white blood cell count, unspecified; E86.1 Hypovolemia; Z91.19 Patient's noncompliance with other medical treatment and regimen; S31.829A Unspecified open wound of left buttock, initial encounter; S31.819A Unspecified open wound of right buttock, initial encounter; X58.XXXA Exposure to other specified factors, initial encounter; Y92.9 Unspecified place or not applicable; Y99.9 Unspecified external cause status
CPT/HCPCS: 36415; 71045-TC; 80048-TC; 80061-TC; 80076-TC; 80202-TC; 82962-TC; 83605-TC; 83690-TC; 83735-TC; 84100-TC; 85025-TC; 87040-TC; 87081-TC; 93970-TC; A6253; A6403; C9803; G0378; G0480; J0692; J1650; J1815; J2405; J3370; J3475; J7030; J7050; J7060; Q0163; U0003

== ENCOUNTER 2020-10-12 11:24 | Inpatient (IN) | payer MEDICAID ==
[~2020-10-12] VITALS: Ht 152.4 cm; Wt 58.5 kg
[2020-10-12] MEDS ORDERED: MORPHINE SULFATE INJ 2 MG/ML DISP.SYRIN IV ONE (12:00)
[2020-10-12] MEDS ORDERED: ONDANSETRON HCL/PF - ER 4 MG/2 ML VIAL IV ONE (12:00)
[2020-10-12 12:04] LABS: BASOPHILS # (AUTO) 0.2 /CMM (0.0-0.2); BASOPHILS % (AUTO) 0.5 % (0.0-2.0); EOSINOPHILS % (AUTO) 0.1 % (0.0-6.0); HEMATOCRIT 30 % (33-45); HEMOGLOBIN 9.6 g/dL (11.5-14.8); LYMPHOCYTES # (AUTO) 1.3 /CMM (0.8-4.8); LYMPHOCYTES % (AUTO) 4.1 % (20.0-44.0); MEAN CORPUSCULAR HGB CONC 32 g/dl (31.0-36.0); MEAN CORPUSCULAR VOLUME 79 fL (82-100); MONOCYTES # (AUTO) 2.1 /CMM (0.1-1.30); MONOCYTES % (AUTO) 6.4 % (2.0-12.0); NEUTROPHILS # (AUTO) 28.8 /CMM (1.8-8.9); NEUTROPHILS % (AUTO) 88.9 % (43.0-81.0); PLATELET COUNT (AUTO) 694 /CMM (150-450); RED BLOOD CELL COUNT(AUTO) 3.84 MIL/uL (4.0-5.2)
--- NOTE | 2020-10-12 12:06 | NUR ---
SALMA FROM STREET. TO ER BED 7. AAOX3. NOT IN RESP DISTRESS. BROUGHT IN FOR FOOT PAIN AND ABD PAIN. PT WAS DISHEVELLED COVERED WITH FECES. WOUND ON LEFT FOOT NOTED WITH LIVE MAGGOTS MASCERATED SKIN W/ MULTIPLE ULCER PAIN IS 10 /10. PT ALSO NOTED WITH SKIN MASCERATION FROM THE THIGH UP TO THE WAIST. PT FECES HAVE CAKED ON HER SKIN. NOTED PRESSURE ULCER ON HER R HIP. PT CLOTHING STRIPPED OFF. PROVIDED WITH GOOD CLEANING. IV LINE ON R HAND 20G, BLOOD DRAWN AND GIVEN TO PHLEB. PT ON MONITOR
[2020-10-12 12:09] LABS: WHITE BLOOD COUNT (AUTO) 32.4 K/uL (4.3-11.0)
[2020-10-12] MEDS ORDERED: ONDANSETRON HCL/PF 4 MG/2 ML VIAL ONE ×2 (12:10→14:41)
[2020-10-12] MEDS ORDERED: MORPHINE SULFATE INJ 4 MG/ML DISP.SYRIN ONE ×2 (12:11→14:41)
[2020-10-12] MEDS ORDERED: VANCOMYCIN 1 GM VIAL ONE (12:19)
[2020-10-12] MEDS ORDERED: PIPERACILLIN /TAZOBACTAM 3.375 G VIAL IV ONE (12:19)
[2020-10-12 12:24] LABS: ALANINE AMINOTRANSFERASE < 6 U/L (12-78); ALKALINE PHOSPHATASE 144 U/L (46-116); ASPARTATE AMINOTRANSFERASE 9 U/L (15-37); BILIRUBIN,DIRECT 0.1 mg/dL (0.0-0.2); BILIRUBIN,TOTAL 0.2 mg/dL (0.2-1.0); CALCIUM, SERUM 8.9 mg/dL (8.5-10.1); CARBON DIOXIDE 20 mmol/L (21-32); CHLORIDE 101 mmol/L (98-107); CREATININE 1.2 mg/dL (0.6-1.3); POTASSIUM 4.6 mmol/L (3.5-5.1); SODIUM SERUM 131 mmol/L (136-145); TOTAL PROTEIN, SERUM 7.7 g/dL (6.4-8.2); UREA NITROGEN, BLOOD 51 mg/dL (7-18)
[2020-10-12] MEDS ORDERED: IV NS 0.9% 1,000 ML BAG IV ONE (12:30)
[2020-10-12] MEDS ORDERED: VANCOMYCIN 1 GM in IV D5W 250 ML IV ONE (12:30)
[2020-10-12] MEDS ORDERED: PIPERACILLIN /TAZOBACTAM 3.375 G in IV D5W 50 ML IV ONE (12:30)
[2020-10-12 12:31] LABS: ALBUMIN 1.4 g/dL (3.4-5.0); GLUCOSE 375 mg/dL (74-106)
--- NOTE | 2020-10-12 12:35 | NUR ---
us at bedside
--- NOTE | 2020-10-12 12:48 | NUR ---
US NOT COMPLETED D/Y PT REFUSED. MADE AWARE.
[2020-10-12 12:51] LABS: BAND % (MANUAL) 5 % (0.0-5.0); LYMPHOCYTES % (MANUAL) 4 % (16-48); MONOCYTES % (MANUAL) 4 % (0-11.0); NEUTROPHILS % (MANUAL) 87 (42-76)
--- NOTE | 2020-10-12 13:28 | NUR ---
UNABLE TO COLLECT URINE SAMPLE FROM PT. OFFER TO COLLECT VIA CATHETER BUT REFUSED MULTIPLE TIME DESPITE EXPLAINING THE INPORTANCE OF GETTING THE URINE. PT VERBALIZED "I DECLINE"
[2020-10-12 14:30] LABS: ABG BASE EXCESS -5.1 mmol/L; ABG OXYGEN SATURATION 95.1 % (92.0-98.5); ABG PCO2 31.2 mmHg (35.0-45.0); ABG PH 7.401 (7.350-7.450); ABG PO2 87.5 mmHg (75.0-100.0); AaDO2 24.9 mmHg; COHb 1.4 % (0.5-1.5); MetHb 0.3 % (0.0-1.5); O2Hb 93.5 % (94.0-97.0); SITE, ABG Right Radial; VENT MODE, BG ROOM AIR
[2020-10-12] MEDS ORDERED: MORPHINE SULFATE INJ 10 MG/ML DISP.SYRIN IV ONE (15:00)
[2020-10-12] MEDS ORDERED: INSULIN REGULAR, HUMAN 100 UNIT/ML 10 ML VIAL SQ ONE (15:00)
[2020-10-12] MEDS ORDERED: ONDANSETRON HCL/PF 4 MG/2 ML VIAL IV ONE (15:00)
--- NOTE | 2020-10-12 15:00 | NUR ---
Room assignment per House Sup - 118
--- NOTE | 2020-10-12 15:19 | NUR ---
REPORT GIVEN TO CHRISSIE CARRASCO FOR MELVIN
[2020-10-12] MEDS ORDERED: INSULIN REGULAR, HUMAN 100 UNIT/ML 10 ML VIAL ONE (15:21)
[2020-10-12 15:48] LABS: BILIRUBIN,URINE SMALL (NEGATIVE); COLOR,URINE YELLOW (YELLOW); LEUKOCYTE ESTERASE ,URINE MODERATE (NEGATIVE); NITRITE, URINE NEGATIVE (NEGATIVE); PH,URINE 5.5 (5.0-8.0); PROTEIN,URINE >=300 mg/dl (NEGATIVE); UGLUCOSE 100 MG/DL mg/dL (NEGATIVE); UROBILINOGEN,URINE 0.2 EU/dL (0.2)
[2020-10-12 15:54] LABS: BACTERIA,URINE 4+ /HPF (None Seen); RBC,URINE 21-50 /HPF (0-2); SQUAMOUS EPITHELIAL CELL,UR 0-2 /HPF (None Seen); WBC,URINE TOO NUMEROUS TO COUN /HPF (0-3)
[2020-10-12 16:00] VITALS: BP 136/68
[2020-10-12] MEDS ORDERED: ACETAMINOPHEN 325 MG TABLET PO PRN (16:00)
[2020-10-12] MEDS ORDERED: MAGNESIUM HYDROXIDE 30 ML UDC PO PRN (16:00)
[2020-10-12] MEDS ORDERED: Z GUARD REMEDY 2 OZ OINT TP PRN (16:00)
[2020-10-12] MEDS ORDERED: ZOLPIDEM TARTRATE 5 MG TABLET PO PRN (16:00)
[2020-10-12] MEDS ORDERED: ONDANSETRON HCL/PF 4 MG/2 ML VIAL IVP PRN (16:00)
[2020-10-12] MEDS ORDERED: *INSULIN REGULAR(HUMULIN R)HUM 100 UNIT/ML VIAL SQ PRN (16:00)
[2020-10-12] MEDS ORDERED: MAG HYDROX/AL HYDROX/SIMETH 30 ML UDC PO PRN (16:00)
[2020-10-12] MEDS ORDERED: DEXTROSE 50%-WATER 50 ML DISP.SYRIN IV PRN (16:00)
--- NOTE | 2020-10-12 16:24 | NUR ---
pt transported to unit on [place] with emt and rn at bedside with acls protocol. nad noted during transport.
[2020-10-12] MEDS ORDERED: MORPHINE SULFATE INJ 2 MG/ML DISP.SYRIN IV PRN (16:30)
--- NOTE | 2020-10-12 16:30 | NUR ---
RN NOTE PT BROUGHT IN VIA GURNEY, BREATHING RA WITH NO SIGNS OF RESP DISTRESS OR SOB. PT C/O PAIN IN BLE 12/17, WILL ADMIN PAIN MEDS PER ORDERS. PT LLE EDEMA, LT FOOT WOUND ON SOLE, WAIST TO UPPER THIGH MACERATION BILATERALLY, AND RT HIP PRESSURE ULCER
[2020-10-12] MEDS ORDERED: MORPHINE SULFATE INJ 4 MG/ML DISP.SYRIN IV ONE (17:00)
[2020-10-12] MEDS: INSULIN REGULAR, HUMAN 100 UNIT/ML 3 ML VIAL SQ PRN (17:32)
[2020-10-12] MEDS: BLOOD SUGAR DIAGNOSTIC 1 EACH STRIP IN SCH ×2 (17:33→22:56)
[2020-10-12] MEDS: ENOXAPARIN SODIUM 40 MG/0.4 ML DISP.SYRIN SQ SCH (17:33)
--- NOTE | 2020-10-12 17:50 | NUR ---
RN NOTE PT IN 12/17 PAIN, REFUSING TO BE TURNED TO CLEAN HER AND TAKE PICTURES WE HAD ALREADY TURNED HER WHEN DR CLARK CAME IN TO ASSESS PT. WILL ATTEMPT AGAIN BEFORE END OF SHIFT AND WILL ADMIN PAIN MEDS PER ORDERS
--- NOTE | 2020-10-12 19:00 | NUR ---
RN CLOSING NOTES PT STABLE, NO SIGNS OF RESP DISTRESS. ALL PT SAFETY PRECAUTIONS IN PLACE. MELVIN ENDORSED TO SAP BPC DEVELOPER RN
[2020-10-12 20:00] VITALS: BP 127/67
--- NOTE | 2020-10-12 20:19 | NUR ---
TELE-1/MULTI OPERATION FORMING MACHINE SETTER ADMITTING ASSESSMENT WAS LIMITED DUE TO PT BEING UNCOOPERATIVE. PT WILL NOT LET ME TOUCH HER. WILL CONTINUE TO MONITOR.
[2020-10-12] MEDS: CEFEPIME 2 GM in IV D5W 100 ML IV SCH (21:05)
--- NOTE | 2020-10-12 21:05 | NUR ---
RN OPENING NOTES Patient was seen sleeping in bed. Patient is alert and oriented x3. Patient's on room air with no respiratory distress noted. Patient is on a tele monitor and in no cardiac distress. Patient has a right upper arm midline gauge #18, which is intact and patent. Safety measures in place: Bed locked, bed alarm on, side rails up x3, and call light within easy reach from the patient. Will continue to monitor the patient.
[2020-10-12] MEDS ORDERED: CT SWABBABLE VALVE TRANS SET 1 EA INFUS.SET MC ONE (21:12)
[2020-10-12] MEDS ORDERED: IOHEXOL-350 100 ML VIAL IV ONE (21:12)
[2020-10-12] MEDS ORDERED: IV NS 0.9% 250 ML IV ONE (21:12)
[2020-10-12] MEDS: IV NS 0.9% 1,000 ML IV PRN (22:51)
--- NOTE | 2020-10-12 22:55 | NUR ---
RN Notes Patient's blood sugar at 2220 was 30 mg/dL. Patient was given Dextrose as part of her ordered PRN medications. Patient's blood sugar was rechecked at 2255 and was 81 mg/dL. Will continue to monitor the patient.
[2020-10-13] VITALS: BP 102/40
--- NOTE | 2020-10-13 02:46 | NUR ---
RN NOTES Per nurse handoff report, patient has wounds present and that she refused an initial skin assessment and refused to have wound pictures taken as well. Asked the patient if a skin assessment can be performed, but patient still refused to have a skin assessment performed. Will trigger a wound consult and endorse to the next shift nurse.
[2020-10-13 04:00] VITALS: BP 127/63
[2020-10-13] MEDS ORDERED: VANCOMYCIN HCL 0.75 GM in IV D5W 250 ML IV SCH ×3 (06:00→20:00)
[2020-10-13 06:01] LABS: BASOPHILS # (AUTO) 0.1 /CMM (0.0-0.2); BASOPHILS % (AUTO) 0.3 % (0.0-2.0); EOSINOPHILS % (AUTO) 0.5 % (0.0-6.0); HEMATOCRIT 26 % (33-45); HEMOGLOBIN 8.3 g/dL (11.5-14.8); LYMPHOCYTES % (AUTO) 7.9 % (20.0-44.0); MEAN CORPUSCULAR HGB CONC 32 g/dl (31.0-36.0); MEAN CORPUSCULAR VOLUME 79 fL (82-100); MONOCYTES # (AUTO) 1.3 /CMM (0.1-1.30); MONOCYTES % (AUTO) 5.1 % (2.0-12.0); NEUTROPHILS # (AUTO) 22.1 /CMM (1.8-8.9); NEUTROPHILS % (AUTO) 86.2 % (43.0-81.0); PLATELET COUNT (AUTO) 607 /CMM (150-450); RED BLOOD CELL COUNT(AUTO) 3.25 MIL/uL (4.0-5.2); WHITE BLOOD COUNT (AUTO) 25.6 K/uL (4.3-11.0)
[2020-10-13 06:44] LABS: BILIRUBIN,TOTAL 0.1 mg/dL (0.2-1.0); CREATININE 0.9 mg/dL (0.6-1.3); PHOSPHORUS 4.5 mg/dL (2.5-4.9); POTASSIUM 4.2 mmol/L (3.5-5.1); TOTAL PROTEIN, SERUM 5.7 g/dL (6.4-8.2)
--- NOTE | 2020-10-13 06:59 | NUR ---
RN CLOSING NOTES Patient was seen sleeping in bed. Patient is alert and oriented x3. Patient's on room air with no respiratory distress noted. Patient is on a tele monitor and in no cardiac distress. Patient has a right upper arm midline gauge #18, which is intact and patent. Patient's latest magnesium and albumin levels were critical (Magnesium=1.2 and Albumin=1.0). Charge Nurse was made aware and will endorse the day shift doctor. Will endorse this information to the upcoming day shift nurse too.Safety measures in place: Bed locked, bed alarm on, side rails up x3, and call light within easy reach from the patient. Will endorse care to the day shift nurse.
[2020-10-13 07:09] LABS: MAGNESIUM 1.2 mg/dL (1.8-2.4)
--- NOTE | 2020-10-13 07:48 | NUR ---
ROAD TRAIN DRIVER OPENING NOTE PATIENT IS IN BED RESTING, PATIENT IS VERY RUDE AND AGITATED. PATIENT USING INAPPROPRIATE LANGUAGE, TOWARDS STAFF. PATIENT IN ON TELE MONITOR READING SINUS RHYTHM IN 90s. PATIENT HAS SHARMA CATHETER. SAFETY PRECAUTIONS ARE ON, BED IS LOCKED IN THE LOWEST POSITION, WITH SIDE RAILS UP, CALL LIGHT WITHIN REACH, PATIENT IS BEEN REFUSING ALL THE TEST. WILL CONTINUE TO MONITOR.
[2020-10-13 08:00] VITALS: BP 122/60
[2020-10-13] MEDS: GLUCERNA SHAKE 237 ML CAN PO SCH ×3 (08:00→16:31)
[2020-10-13] MEDS: BLOOD SUGAR DIAGNOSTIC 1 EACH STRIP IN SCH ×4 (08:25→22:03)
--- NOTE | 2020-10-13 08:41 | NUR ---
Dr Pipo Martinwas notified re; lab results mag 1.2 alb. 1.0 and patient refused to have Duplex venous lower ext. at this time will give magnesium 2 gm for replacement as ordered
[2020-10-13] MEDS: CEFEPIME 2 GM in IV D5W 100 ML IV SCH ×2 (08:49→21:30)
[2020-10-13] MEDS: Magnesium 1GM/D5W 100ML PREMIX 100 ML IV SCH ×2 (09:50→11:12)
[2020-10-13] MEDS: IV NS 0.9% 1,000 ML IV PRN (09:52)
--- NOTE | 2020-10-13 10:00 | NUR ---
PT REFUSED TO DO DUPLEX VENOUS LOWER EXT. AGAIN. SHE HAS WOUNDS ON THIGH, FOOT. PEEL OVEN TENDER IS AWARE WILL NOTIFY
[2020-10-13] MEDS: HYDROMORPHONE 1 MG/1 ML DISP.SYRIN IV PRN ×3 (11:12→21:52)
--- NOTE | 2020-10-13 11:25 | NUR ---
CLOTHESPIN DRIER OPERATOR NOTE PATIENT REQUESTED DILAUDID MEDICATION FOR THE PAIN, OFFERED NORCO, PATIENT REFUSED AND WANTED DILAUDID.
[2020-10-13 12:00] VITALS: BP 117/78
[2020-10-13] MEDS: INSULIN REGULAR, HUMAN 100 UNIT/ML 3 ML VIAL SQ PRN ×3 (12:48→22:04)
[2020-10-13 16:00] VITALS: BP 117/78
[2020-10-13] MEDS: ENOXAPARIN SODIUM 40 MG/0.4 ML DISP.SYRIN SQ SCH (17:13)
--- NOTE | 2020-10-13 18:29 | NUR ---
CANE FLUME WATCHER CLOSING NOTE PATIENT IS IN BED RESTING, PATIENT IN ON TELE MONITOR READING SINUS RHYTHM IN 90s. PATIENT HAS SHARMA CATHETER. SAFETY PRECAUTIONS ARE ON, BED IS LOCKED IN THE LOWEST POSITION, WITH SIDE RAILS UP, CALL LIGHT WITHIN REACH, PATIENT IS BEEN REFUSING ALL THE TEST. ENDORSE PATIENT TO DIGITAL PRODUCT SPECIALIST NURSE FOR MELVIN.
[2020-10-13 20:00] VITALS: BP 137/67
--- NOTE | 2020-10-13 21:00 | NUR ---
RN NOTES, PATIENT C/O ITCHING IN THE WHOLE BODY, NOTHING ACUTE, SHE STATED THAT SHE ALWAYS HAD THIS PROBLEM, INFORMED JOZEF FARNSWORTH RESIDENT CARE PROVIDER, AND HE REPLIED WITH NEW ORDER FOR BENADRYL 50MG Q8HRS PRN, ORDER NOTED AND CARRIED OUT.
[2020-10-13] MEDS: diphenhydrAMINE HCL 50 MG CAPSULE PO PRN ×2 (21:37→22:54)
--- NOTE | 2020-10-13 21:52 | NUR ---
RN NOTES, ABOUT TO ADMINISTER BENADRYL AFTER PHARMACY VERIFIED ORDER, AND PATIENT REQUESTING PAIN MEDICATION INSTEAD, AND HOLD OFF ON BENADRYL FOR NOW, WILL CONT TO MONITOR.
--- NOTE | 2020-10-13 22:00 | NUR ---
RN NOTED, ATTEMPTED TO DO BODY ASSESSMENT FOR WEEKLY SKIN PICTURES, AND PATIENT REFUSED, STARTED CURSING AND USING FOUL LANGUAGE TOWARD NURSE AND NURSE COUNTER CUTTER, , CHARGE NURSE AWARE, WILL CONTINUE TO MONITOR.
--- NOTE | 2020-10-13 22:04 | NUR ---
RN NOTES, BLOOD SUGAR LEVEL 126MG/DL INSULIN PER SLIDING SCALE NON ADMINISTERED.
[2020-10-14] VITALS: BP 156/84
[2020-10-14] MEDS: HYDROMORPHONE 1 MG/1 ML DISP.SYRIN IV PRN ×4 (02:36→20:34)
[2020-10-14 04:00] VITALS: BP 138/65
[2020-10-14] MEDS: VANCOMYCIN HCL 0.75 GM in IV D5W 250 ML IV SCH (06:12)
[2020-10-14 07:00] LABS: BASOPHILS # (AUTO) 0.2 /CMM (0.0-0.2); BASOPHILS % (AUTO) 1.3 % (0.0-2.0); EOSINOPHILS % (AUTO) 2.6 % (0.0-6.0); HEMATOCRIT 23 % (33-45); HEMOGLOBIN 7.4 g/dL (11.5-14.8); LYMPHOCYTES # (AUTO) 2.1 /CMM (0.8-4.8); LYMPHOCYTES % (AUTO) 13.3 % (20.0-44.0); MEAN CORPUSCULAR HGB CONC 32 g/dl (31.0-36.0); MEAN CORPUSCULAR VOLUME 81 fL (82-100); MONOCYTES # (AUTO) 1.2 /CMM (0.1-1.30); MONOCYTES % (AUTO) 7.6 % (2.0-12.0); NEUTROPHILS # (AUTO) 11.7 /CMM (1.8-8.9); NEUTROPHILS % (AUTO) 75.2 % (43.0-81.0); PLATELET COUNT (AUTO) 582 /CMM (150-450); RED BLOOD CELL COUNT(AUTO) 2.89 MIL/uL (4.0-5.2); WHITE BLOOD COUNT (AUTO) 15.6 K/uL (4.3-11.0)
[2020-10-14] MEDS: IV NS 0.9% 1,000 ML IV PRN (07:02)
--- NOTE | 2020-10-14 07:02 | NUR ---
RN NOTES, NO SIGNIFICANT CHANGE IN CONDITION, PATIENT REFUSED CARE AND PICTURES, EDUCATION PROVIDED REGARDING IMPORTANCE OF BOTH, STILL REFUSED, CURSING AND USING FOUL LANGUAGE TOWARDS STAFF, CHARGE NURSE BEATRICE AWARE, WILL ENDORSE CONTINUITY OF CARE TO ONCOMING NURSE.
--- NOTE | 2020-10-14 07:30 | NUR ---
RN OPENING NOTES PATIENT PRESENT IN BED, AWAKE, A/OX3, ON ROOM AIR, SATURATIONS 97%, [id number] ON GENERALIZED PAIN ON HER LEGS, BACK, TIGHTS, 8/10, COOPERATIVE AT THIS TIME, COMPLAINS ON QUALITY OF FOOD, REQUESTING CEREAL AND MILK FOR BREAKFAST, NSR ON TELE-MONITOR WITH HR OF 90, IV LINE PATENT, FLUSHED AND INTACT, SHARMA CATH IN PLACE, DRAINING YELLOW CLEAR URINE BY GRAVITY , BED LOCKED, IN LOWEST POSITION, REFUSING TO PUT HOB UP, WILL CONT TO MONITOR
[2020-10-14 07:40] LABS: BILIRUBIN,TOTAL 0.1 mg/dL (0.2-1.0); CALCIUM, SERUM 7.8 mg/dL (8.5-10.1); CREATININE 0.9 mg/dL (0.6-1.3); MAGNESIUM 1.8 mg/dL (1.8-2.4); PHOSPHORUS 3.7 mg/dL (2.5-4.9); POTASSIUM 4.3 mmol/L (3.5-5.1)
[2020-10-14 08:00] VITALS: BP 149/66
[2020-10-14] MEDS: GLUCERNA SHAKE 237 ML CAN PO SCH ×3 (08:00→16:25)
[2020-10-14] MEDS: BLOOD SUGAR DIAGNOSTIC 1 EACH STRIP IN SCH ×4 (08:04→22:36)
--- NOTE | 2020-10-14 08:30 | NUR ---
REFUSING TO TAKE GLUCERNA SUPPLEMENTS, STATING "TASTE LIKE CHEMICAL", WILL NOTIFY HOSPITALIST
--- NOTE | 2020-10-14 09:00 | NUR ---
DURING WOUND NURSE ROUNDING REFUSED TO TAKE PICTURES, WENT VERBALLY ABUSIVE TOWARDS STAFF
[2020-10-14] MEDS: CEFEPIME 2 GM in IV D5W 100 ML IV SCH ×2 (09:16→20:33)
[2020-10-14] MEDS: INSULIN REGULAR, HUMAN 100 UNIT/ML 3 ML VIAL SQ PRN ×3 (09:17→17:41)
[2020-10-14] MEDS: diphenhydrAMINE HCL 50 MG CAPSULE PO PRN ×2 (10:33→18:34)
--- NOTE | 2020-10-14 10:36 | NUR ---
WOUND CARE CONSULT: PT PRESENTS WITH MULTIPLE WOUNDS AND SKIN ISSUES PRESENT ON ADMISSION INCLUDING BILATERAL ISCHIAL STAGE 4 ULCERS AND SACRAL STAGE 3 ULCER WELL FOOT WOUNDS, RT BUTTOCK WOUND WITH NECROTIC TISSUE, RASHES TO FLANK, BUTTOCKS, PERINEAL AREAS WITH PEELING SKIN, ALL PRESENT ON ADMISSION. PER N.P REPORT, PT WAS ADMITTED WITH FECES ON BODY WELL MAGGOTS. PT IS UNCOOPERATIVE AT TIMES AND REFUSED WOUND PHOTOS. PT ANSWERING QUESTIONS AND SPEAKING NORMALLY, THEN SUDDENLY STARTS SCREAMING AND BECOMES VERBALLY ABUSIVE AT TIMES. SURGICAL AND DPM CONSULTS REQUESTED FROM DR CHENG AND DR MCCOLLUM. PT IS ON JIN ISOFLEX LOW AIRLOSS BED. IN AGREEMENT WITH PLAN OF CARE.
[2020-10-14] MEDS ORDERED: HYDROGEL DRESSING 90 GM TUBE TP PRN (11:00)
[2020-10-14] MEDS: HYDROGEL DRESSING 90 GM TUBE TP SCH (11:00)
[2020-10-14] MEDS: DAKINS QUARTER STRENGTH (0.125%) 480 ML BOTTLE TOP SCH (11:00)
[2020-10-14 12:00] VITALS: BP 157/76
[2020-10-14 16:00] VITALS: BP 124/66
[2020-10-14] MEDS: CLOTRIMAZOLE 1% 15 GM TUBE TP SCH (17:00)
--- NOTE | 2020-10-14 17:44 | NUR ---
Offered cleaning and wound care, patient states she want to have dinner first, refused x2
--- NOTE | 2020-10-14 18:31 | NUR ---
Offered to clean and provided wound care, refused, education provided, still refused
[2020-10-14] MEDS: ENOXAPARIN SODIUM 40 MG/0.4 ML DISP.SYRIN SQ SCH (18:34)
--- NOTE | 2020-10-14 19:01 | NUR ---
RN CLOSING NOTES REMAINS IN BED, PROVIDED WITH SNACKS AND FLUIDS, REFUSING TO TAKE GLUCERNA, HOSPITALIST MADE AWARE, WILL ENDORSE TO PM SHIFT RN FOR MELVIN
[2020-10-14 20:00] VITALS: BP 124/66
--- NOTE | 2020-10-14 20:00 | NUR ---
FIBERGLASS BOAT MAKER NOTE PT REFUSED VS TAKEN.
--- NOTE | 2020-10-14 20:10 | NUR ---
SOFTWARE DEVELOPMENT INTERN NOTE PT IN BED AWAKE. C/O LT LOWER LEG PAIN 8/10 DILAUDID 1 MG IVP GIVEN. ON TELE MONITOR SR 96. PT IS UNCOPERATIVE AT TIMES WITH THE CARE. REFUSED TO LET SKIN ASSESSMENT DONE. F/C INTACT AND PATENT DRAINING YELLOWISH COLOR URINE. PT DON'T WANT ME TO CHECK SHARMA CATH. ALL NEEDS ATTENDED. KEPT HER COMFORTABLE. SIDE RAILS UP X 3 AND CALL LIGHT WITHIN REACH. VSS. CONTINUE TO MONITOR HER.
--- NOTE | 2020-10-14 22:00 | NUR ---
ASBESTOS PIPE SUPERVISOR NOTE PT REFUSED PICTURES TO BE TAKEN OF THE WOUNDS AND REFUSED TREATMENTS.
[2020-10-15] VITALS: BP 175/84
[2020-10-15] MEDS: VANCOMYCIN HCL 0.75 GM in IV D5W 250 ML IV SCH ×2 (00:23→17:17)
[2020-10-15] MEDS: HYDROMORPHONE 1 MG/1 ML DISP.SYRIN IV PRN ×4 (00:58→20:33)
[2020-10-15] MEDS: IV NS 0.9% 1,000 ML IV PRN (03:52)
[2020-10-15 06:45] LABS: BASOPHILS # (AUTO) 0.1 /CMM (0.0-0.2); BASOPHILS % (AUTO) 0.4 % (0.0-2.0); EOSINOPHILS % (AUTO) 4.3 % (0.0-6.0); HEMATOCRIT 26 % (33-45); HEMOGLOBIN 8.2 g/dL (11.5-14.8); LYMPHOCYTES # (AUTO) 1.9 /CMM (0.8-4.8); LYMPHOCYTES % (AUTO) 12.7 % (20.0-44.0); MEAN CORPUSCULAR HGB CONC 32 g/dl (31.0-36.0); MEAN CORPUSCULAR VOLUME 80 fL (82-100); MONOCYTES # (AUTO) 1.1 /CMM (0.1-1.30); MONOCYTES % (AUTO) 7.5 % (2.0-12.0); NEUTROPHILS # (AUTO) 11.4 /CMM (1.8-8.9); NEUTROPHILS % (AUTO) 75.1 % (43.0-81.0); PLATELET COUNT (AUTO) 615 /CMM (150-450); RED BLOOD CELL COUNT(AUTO) 3.19 MIL/uL (4.0-5.2); WHITE BLOOD COUNT (AUTO) 15.1 K/uL (4.3-11.0)
--- NOTE | 2020-10-15 06:48 | NUR ---
WATERPROOFER NOTE PT IN BED ASLEEP, NO DISTRESS OR DISCOMFORT NOTED. IVF INFUSING WELL. ALL NEEDS ATTENDED. WILL ENDORSE TO DAY SHIFT NURSE FOR CONTINUE TO CARE.
[2020-10-15 07:03] LABS: CALCIUM, SERUM 7.7 mg/dL (8.5-10.1); CREATININE 0.7 mg/dL (0.6-1.3); MAGNESIUM 1.3 mg/dL (1.8-2.4); PHOSPHORUS 2.6 mg/dL (2.5-4.9); POTASSIUM 4.5 mmol/L (3.5-5.1)
[2020-10-15] MEDS: BLOOD SUGAR DIAGNOSTIC 1 EACH STRIP IN SCH ×4 (07:51→22:00)
[2020-10-15 08:00] VITALS: BP 174/72
[2020-10-15] MEDS: GLUCERNA SHAKE 237 ML CAN PO SCH ×3 (08:15→16:54)
[2020-10-15] MEDS: INSULIN REGULAR, HUMAN 100 UNIT/ML 3 ML VIAL SQ PRN ×3 (08:17→17:25)
[2020-10-15] MEDS: CEFEPIME 2 GM in IV D5W 100 ML IV SCH ×2 (08:24→22:27)
[2020-10-15] MEDS: HYDROGEL DRESSING 90 GM TUBE TP SCH (09:00)
[2020-10-15] MEDS: DAKINS QUARTER STRENGTH (0.125%) 480 ML BOTTLE TOP SCH (09:00)
[2020-10-15] MEDS: THERAHONEY GEL 1.5 OZ TUBE TP SCH (09:00)
[2020-10-15] MEDS: CLOTRIMAZOLE 1% 15 GM TUBE TP SCH ×2 (09:00→16:54)
--- NOTE | 2020-10-15 10:42 | NUR ---
Patient refusal of wound care visit. Ras Baez RN
[2020-10-15] MEDS: Magnesium 1GM/D5W 100ML PREMIX 100 ML IV SCH ×4 (13:13→16:53)
[2020-10-15 16:00] VITALS: BP 153/67
[2020-10-15] MEDS: ENOXAPARIN SODIUM 40 MG/0.4 ML DISP.SYRIN SQ SCH (18:00)
--- NOTE | 2020-10-15 18:55 | NUR ---
Patient bed bath, linen change with Guille vora. Ras Baez RN
[2020-10-15 20:00] VITALS: BP 153/67
[2020-10-15] MEDS: diphenhydrAMINE HCL 50 MG CAPSULE PO PRN (20:01)
--- NOTE | 2020-10-15 20:01 | NUR ---
MS RN OPENING NOTE PATIENT A/OX3; ABLE TO MAKE NEEDS KNOWN. TOLERATING ROOM AIR WELL WITH NO SOB. F/C DRAINING CLEAR YELLOW URINE; PATENT AND INTACT. KAVITA MIDLINE INFUSING MG AT 100ML/HR. PATIENT C/O ITCHINESS; ADMINISTERED BENADRYL ORDERED. WILL CONTINUE PAIN MANAGEMENT. SAFETY MEASURES IN PLACE: BED IN LOWEST LOCKED POSITION, SIDE RAILS UP X2, CALL LIGHT WITHIN EASY REACH, BED ALARMS ON. WILL CONTINUE PLAN OF CARE.
--- NOTE | 2020-10-15 21:16 | NUR ---
MAGALYS TO 3W TRANSFER ADMINISTERED DILAUDID AT 2032 FOR 10/10 PAIN ON R LEG. GAVE REPORT TO [facility] 3W RN. TRANSFERRED PATIENT TO [facility] PER SAFETY AND HOSPITAL PROTOCOL.
[2020-10-15 21:30] VITALS: BP 159/73
[2020-10-15] MEDS ORDERED: Magnesium 1GM/D5W 100ML PREMIX 100 ML IV SCH (21:30)
--- NOTE | 2020-10-15 21:45 | NUR ---
MS RN OPENING NOTES: RECEIVED PATIENT AWAKE TRANSFERRED VIA GURNEY FROM [facility] ,A/OX 3 ON BR NO COMPLAIN OF PAIN AND DISCOMFORT BED IN LOW POSITION, CALL LIGHTS WITHIN REACH WITH MID UPPER PIC LINE AT RAC PATENT AND INFUSING WELL. ON ROOM AIR, NO RESP DISTRESS WAS OBSERVED, KEPT CLEAN AND DRY WILL CONTINUE TO MONITOR.
--- NOTE | 2020-10-15 22:10 | NUR ---
RN NOTES: PATIENT REFUSED BLOOD SUGAR CHECKING OFFERED TWICE EXPLAIN THE RISK AND BENFITS BUT STILL REFUSED
--- NOTE | 2020-10-15 22:38 | NUR ---
RN NOTES: PATIENT PULLED OUT KAVITA LISA EXPLAIN TO HER THAT IV IS PATENT AND THE RISK AND BENEFITS OF HAVING THE IV LINE FOR HER MEDICATION BUT RESIDENT DID NOT LISTEN AND PULLED THE IV LINE OUT, NO BLEEDING WAS OBSERVED. Addendum: 10/15/20 at 7019 by KATELYN BRITO RN DID TRY TO OFFER TO REINSERT IV ON THE OTHER SIDE PATIENT EXPLAOIN TO HER THAT SHE HAD PENDING ATB MEDICATION STILL PATIENT REFUSE IV INSERTION, REFUSED ANTIBIOTIC ADMINISTRATION.
[2020-10-16 00:14] VITALS: BP 153/67
[2020-10-16 04:03] VITALS: BP 153/67
[2020-10-16] MEDS: diphenhydrAMINE HCL 50 MG CAPSULE PO PRN ×2 (04:13→12:24)
[2020-10-16 06:14] LABS: BASOPHILS # (AUTO) 0.1 /CMM (0.0-0.2); BASOPHILS % (AUTO) 0.5 % (0.0-2.0); EOSINOPHILS % (AUTO) 3.6 % (0.0-6.0); HEMATOCRIT 26 % (33-45); HEMOGLOBIN 8.3 g/dL (11.5-14.8); LYMPHOCYTES # (AUTO) 2.4 /CMM (0.8-4.8); LYMPHOCYTES % (AUTO) 16.4 % (20.0-44.0); MEAN CORPUSCULAR HGB CONC 32 g/dl (31.0-36.0); MEAN CORPUSCULAR VOLUME 81 fL (82-100); MONOCYTES # (AUTO) 1.2 /CMM (0.1-1.30); MONOCYTES % (AUTO) 8.4 % (2.0-12.0); NEUTROPHILS # (AUTO) 10.5 /CMM (1.8-8.9); NEUTROPHILS % (AUTO) 71.1 % (43.0-81.0); PLATELET COUNT (AUTO) 611 /CMM (150-450); RED BLOOD CELL COUNT(AUTO) 3.26 MIL/uL (4.0-5.2); WHITE BLOOD COUNT (AUTO) 14.7 K/uL (4.3-11.0)
[2020-10-16 06:50] LABS: CALCIUM, SERUM 7.6 mg/dL (8.5-10.1); CREATININE 0.7 mg/dL (0.6-1.3); MAGNESIUM 1.9 mg/dL (1.8-2.4); POTASSIUM 4.6 mmol/L (3.5-5.1)
[2020-10-16] MEDS: BLOOD SUGAR DIAGNOSTIC 1 EACH STRIP IN SCH ×3 (07:30→17:11)
[2020-10-16] MEDS: HYDROCODONE/APAP 5/325MG TABLET PO PRN ×3 (07:32→15:58)
--- NOTE | 2020-10-16 07:42 | NUR ---
MS RN OPENING NOTE PATIENT A/OX3; ABLE TO MAKE NEEDS KNOWN. PATIENT IS BREATHING EVENLY AND NONLABORED TOLERATING ROOM AIR WELL WITH NO SOB. F/C DRAINING CLEAR YELLOW URINE; PATENT AND INTACT. PATIENT HAS NO IV ACCESS MD AWARE. PATIENT COMPLAINED OF 7/10 PAIN IN THE LOWER EXTREMITIES, PATIENT ASKED FOR PRN PAIN MEDICATION. WILL GIVEN PRN MEDICATION ORDERED. LABORATORY CALLED TO ENDORSE CRITICAL LAB VALUE GLUCOSE 355. PATIENT IS REFUSING ALL ACCUCHECKS AND INSULIN. MD NOTIFIED. SAFETY MEASURES IN PLACE: BED IN LOWEST LOCKED POSITION, SIDE RAILS UP X2, CALL LIGHT WITHIN EASY REACH, BED ALARMS ON. WILL CONTINUE PLAN OF CARE.
[2020-10-16] MEDS: GLUCERNA SHAKE 237 ML CAN PO SCH ×3 (07:57→17:00)
[2020-10-16 08:00] VITALS: BP 184/83
[2020-10-16] MEDS: HYDROGEL DRESSING 90 GM TUBE TP SCH (08:29)
[2020-10-16] MEDS: CLOTRIMAZOLE 1% 15 GM TUBE TP SCH ×2 (08:30→17:00)
[2020-10-16] MEDS: THERAHONEY GEL 1.5 OZ TUBE TP SCH (08:30)
[2020-10-16] MEDS: DAKINS QUARTER STRENGTH (0.125%) 480 ML BOTTLE TOP SCH (08:30)
[2020-10-16] MEDS: CEFEPIME 2 GM in IV D5W 100 ML IV SCH (08:58)
--- NOTE | 2020-10-16 08:58 | NUR ---
RN NOTES: PATIENT PULLED OUT KAVITA MIDLINE. PATIENT STATED IT WAS ITCHY LAST SHIFT AND SHE DID NOT WANT THAT LINE ANYMORE. TRIED TP OFFER REINSERT PERIPHERAL IV ON THE OTHER SIDE. EXPLAINED TO PATIENT THAT SHE HAD PENDING ATB MEDICATION STILL CONTINUED TO REFUSE IV INSERTION, AND REFUSED ANTIBIOTIC ADMINISTRATION. MD NOTIFIED. WILL CONTINUE TO EDUCATE PATIENT ON THE IMPORTANCE OF GETTING AN IV TO GET IV ATB MEDICATION
--- NOTE | 2020-10-16 09:02 | NUR ---
RN NOTE PATIENT REFUSED ALL WOUND CARE CREAMS. PATIENT STATED THEY MADE HER MORE ITCHY AND SHE WAS ALLERGIC. PATIENT ASKED FOR LOTION, BUT STATE THE ONE WE GAVE WAS SCENTED AND SHE COULD NOT USE. NOTIFIED MD WILL CONTINUE TO MONITOR WOUNDS
--- NOTE | 2020-10-16 10:08 | NUR ---
RN NOTE PATIENT REFUSED WOUND TREATMENT. EXPLAINED THE NEED FOR THE TREATMENTS AND THE BENEFITS. PATIENT STATED " NONE OF THOSE CREAMS WILL HELP". PATIENT CONTINUES TO REFUSE SKIN CARE. NOTIFIED MD.
--- NOTE | 2020-10-16 10:50 | NUR ---
Firer Bisque Kiln consult: superintendent oil well services consult requested for homelessness. Patient is a 54-year-old, female. SW met with patient at her bedside in the med-surg unit. Patient was resting and presented irritable. Patient was ungroomed. Per chart, patient was brought in by ambulance on 10/12/20 for foot and abdominal pain. Patient stated that she is currently homeless and has been homeless for the last seven years. Patient reported that she uses a wheelchair and stated, I dont know where it is. Patient stated that she currently has no source of income. SW asked patient if she has a history of substance use and patient denied use. SW assessed patients history of mental illness and patient denied history. Patient stated that she is not currently experiencing suicidal or homicidal ideation. SW offered patient homeless resources and patient declined the resources stating, I dont want the resources, I have no place to put them. Patient refused to sign homeless waiver. SW filed waiver in the patients chart, documenting that the patient refused to sign. Patient requested placement in a board and care. SW will follow up with case management to discuss placement options. PLAN: SW will follow up with case management to discuss placement options. SW will remain available as needed.
--- NOTE | 2020-10-16 11:00 | NUR ---
Charge Histotechnologist note: SW discussed options for placement with JENNIFER Cui who stated that the patient has been accepted to [facility] ([address] [facility] [id number]; [phone]). No further SS intervention at this time, however, SW will remain available as needed.
[2020-10-16] MEDS: INSULIN REGULAR, HUMAN 100 UNIT/ML 3 ML VIAL SQ PRN (11:10)
--- NOTE | 2020-10-16 11:33 | NUR ---
RN NOTE PATIENT BLOOD GLUCOSE NOTED @ 287. GAVE 12 UNITS OF INSULIN.PATIENT ALSO COMPLAINED OF PAIN 11/16. ASKED FOR PRN PAIN MEDICATION. GAVE PRN PAIN MEDICATION ORDERED
[2020-10-16] MEDS: VANCOMYCIN HCL 0.75 GM in IV D5W 250 ML IV SCH (11:41)
--- NOTE | 2020-10-16 12:24 | NUR ---
RN NOTES PATIENT COMPLAINED OF SEVERE ITCHING. PATIENT ASKED FOR PRN BENADRYL. WILL ADMINISTER MEDICATION ORDERED
[2020-10-16] MEDS ORDERED: K PHOS NEUTRAL 250 MG TABLET PO ONE (15:30)
--- NOTE | 2020-10-16 15:50 | NUR ---
RN NOTE PATIENT REFUSED [facility] MEDICATION. PATIENT STATED " SHE HAS ENOUGH VITAMINS IN HER DIET. MD NOTIFIED. PATIENT WAS EXPLAINED RISK AND BENEFITS. PATIENT STILL REFUSED. WILL CONTINUE TO MONITOR
--- NOTE | 2020-10-16 15:54 | NUR ---
RN NOTE PATIENT WAS NOTED TO HAVE FEVER OF 99.8 DURING VITALS. COOLING MEASURES IMPLEMENTED. WILL RECHECK TEMP PATIENT ALSO COMPLAINED OF PAIN 11/16. ASKED FOR PRN PAIN MEDICATION. GAVE PRN PAIN MEDICATION ORDERED. WILL CONTINUE TO MONITOR
--- NOTE | 2020-10-16 17:11 | NUR ---
RN NOTE PATIENT REFUSED WOUND TREATMENT. EXPLAINED THE NEED FOR THE TREATMENTS AND THE BENEFITS. PATIENT STATED " NONE OF THOSE CREAMS WILL HELP". PATIENT CONTINUES TO REFUSE SKIN CARE. PATIENT REFUSED 1700 ACCUCHECK. PATIENT STATED IT WAS DONE EARLIER. EXPLAINED THE NEED OF HAVE ROUTINE ACCUCHECKS. PATIENT REFUSED. MD AWARE OF PATIENT'S REFUSAL OF ANY TREATMENT.
[2020-10-16] MEDS: ENOXAPARIN SODIUM 40 MG/0.4 ML DISP.SYRIN SQ SCH (17:13)
--- NOTE | 2020-10-16 17:36 | NUR ---
RN NOTE PATIENT IS REFUSING DISCHARGE. PATIENT ASKED FOR ORAL PAIN MEDICATION AND ANTI ANXIETY MEDICATION. DR ROBIN GAVE ORDER. WILL ADMINISTER PER ORDER
[2020-10-16 17:47] VITALS: BP 179/88
[2020-10-16] MEDS ORDERED: clonazePAM 1 MG TABLET PO PRN (18:00)
[2020-10-16] MEDS ORDERED: HYDROMORPHONE HCL 2 MG TABLET PO PRN (18:00)
[2020-10-16] MEDS ORDERED: LEVO500T90 PO (18:09)
[2020-10-16] MEDS ORDERED: SODI473S8 TOP (18:09)
[2020-10-16] MEDS ORDERED: COLL30OI TP (18:09)
[2020-10-16] MEDS ORDERED: SULF1TAB48 PO (18:09)
[2020-10-16] MEDS ORDERED: Hydrogel Dressing TP (18:09)
--- NOTE | 2020-10-16 18:55 | NUR ---
MS PEARL FISHERMAN NOTE RECEIVE DISCHARGE ORDER FOR PATIENT. PATIENT IS A/O X 4. PATIENT IS BREATHING EVENLY AND NONLABORED ON ROOM AIR. PATIENT WAS GIVEN DISCHARGE INSTRUCTIONS BOTH VERBALLY AND WRITTEN. PATIENT'S IV WAS ALREADY REMOVED EARLIER. PATIENT REFUSED PHOTOS TO BE TAKEN FOR WOUND DOCUMENTATIN. PATIENT REFUSED ALL TREATMENT AND MEDICATION PRIOR TO DISCHARGE. PATIENT WAS NONCOMPLIANT THROUGHOUT SHIFT AND DURING THEN ENTIRE DISCHARGE PROCESS. PATIENT WAS YELLING AND SCREAMING BUT PATIENT LEFT VIA AMBULANCE IN STABLE CONDITION TO [facility] WITH 2 CITRUS FRUIT COLORER PRESENT
== END 2020-10-16 19:05 | DRG 720 ==
LOC: ER 11:26 → TELE1 15:26 → MEDSG1 10-15 10:57 → MED 10-15 20:56
PROVIDERS: ADMIT Hospitalist; ATTEND Student in an Organized Health Care Education/Training Program
PROC: 05H933Z Insertion of Infusion Device into Right Brachial Vein, Percutaneous Approach (ICD-10-PCS; principal; 2020-10-12)
DX: A41.9 Sepsis, unspecified organism (principal); N17.0 Acute kidney failure with tubular necrosis; E43 Unspecified severe protein-calorie malnutrition; G93.41 Metabolic encephalopathy; L89.224 Pressure ulcer of left hip, stage 4; L89.214 Pressure ulcer of right hip, stage 4; L89.314 Pressure ulcer of right buttock, stage 4; L89.324 Pressure ulcer of left buttock, stage 4; D68.59 Other primary thrombophilia; E11.51 Type 2 diabetes mellitus with diabetic peripheral angiopathy without gangrene; E86.1 Hypovolemia; E11.65 Type 2 diabetes mellitus with hyperglycemia; L97.929 Non-pressure chronic ulcer of unspecified part of left lower leg with unspecified severity; D50.9 Iron deficiency anemia, unspecified; N39.0 Urinary tract infection, site not specified; Z73.6 Limitation of activities due to disability; Z20.822 Contact with and (suspected) exposure to COVID-19; Z99.3 Dependence on wheelchair; Z88.8 Allergy status to other drugs, medicaments and biological substances; R65.20 Severe sepsis without septic shock; L97.919 Non-pressure chronic ulcer of unspecified part of right lower leg with unspecified severity; I87.2 Venous insufficiency (chronic) (peripheral); L03.116 Cellulitis of left lower limb; L03.115 Cellulitis of right lower limb; I87.313 Chronic venous hypertension (idiopathic) with ulcer of bilateral lower extremity; I10 Essential (primary) hypertension; S90.821A Blister (nonthermal), right foot, initial encounter; Z59.0 Homelessness; E83.42 Hypomagnesemia; E11.621 Type 2 diabetes mellitus with foot ulcer; E87.1 Hypo-osmolality and hyponatremia; G82.20 Paraplegia, unspecified; Z96.642 Presence of left artificial hip joint; Z91.14 Patient's other noncompliance with medication regimen; Z91.19 Patient's noncompliance with other medical treatment and regimen; B96.1 Klebsiella pneumoniae [K. pneumoniae] as the cause of diseases classified elsewhere
CPT/HCPCS: 36415; 36600; 71045-TC; 73590-TC; 80048-TC; 80053-TC; 80061-TC; 80076-TC; 80202-TC; 81001; 82010-TC; 82803-TC; 82962-TC; 83605-TC; 83735-TC; 84100-TC; 84484-TC; 85025-TC; 87040-TC; 87081-TC; 87086-TC; 87186-TC; A6248; G0378; J0692; J1170; J1650; J1815; J2270; J2405; J2543; J3370; J3475; J7030; J7050; J7060; Q0163; Q9967; U0003

== ENCOUNTER 2020-10-18 01:11 | Inpatient (IN) | payer MEDICAID ==
[~2020-10-18] VITALS: Ht 160 cm; Wt 59.0 kg
[~2020-10-18 01:11] MED LIST: COLL30OI TP; Hydrogel Dressing TP; LEVO500T90 PO; SODI473S8 TOP; SULF1TAB48 PO
--- NOTE | 2020-10-18 01:12 | NUR ---
FELIPE C/O BRYANT HERNANDEZ C/O CHRONIC FOOT PAIN, BUTTOCK PAIN, HEADACHE, PT AAOX4, DENIES ANY SOB/CP VSS , PENDING ER PROVIDER CAL
[2020-10-18] MEDS ORDERED: ONDANSETRON HCL/PF 4 MG/2 ML VIAL IVP ONE (02:00)
[2020-10-18] MEDS ORDERED: IV NS 0.9% 500 ML BAG IV ONE (02:00)
[2020-10-18] MEDS ORDERED: MORPHINE SULFATE INJ 2 MG/ML DISP.SYRIN IV ONE ×2 (02:00→05:30)
[2020-10-18] MEDS ORDERED: ONDANSETRON 4 MG TAB.RAPDIS ONE (02:18)
[2020-10-18] MEDS ORDERED: MORPHINE SULFATE INJ 4 MG/ML DISP.SYRIN ONE ×2 (02:38→05:05)
[2020-10-18] MEDS ORDERED: ONDANSETRON HCL/PF 4 MG/2 ML VIAL ONE ×2 (02:38→05:05)
[2020-10-18] MEDS ORDERED: MORPHINE SULFATE INJ 2 MG/ML DISP.SYRIN ONE (02:43)
[2020-10-18 04:44] LABS: BASOPHILS # (AUTO) 0.1 /CMM (0.0-0.2); BASOPHILS % (AUTO) 0.9 % (0.0-2.0); EOSINOPHILS % (AUTO) 3.4 % (0.0-6.0); HEMATOCRIT 26 % (33-45); HEMOGLOBIN 8.3 g/dL (11.5-14.8); LYMPHOCYTES # (AUTO) 3.1 /CMM (0.8-4.8); LYMPHOCYTES % (AUTO) 21.5 % (20.0-44.0); MEAN CORPUSCULAR HGB CONC 31 g/dl (31.0-36.0); MEAN CORPUSCULAR VOLUME 81 fL (82-100); MONOCYTES # (AUTO) 1.2 /CMM (0.1-1.30); MONOCYTES % (AUTO) 8.5 % (2.0-12.0); NEUTROPHILS # (AUTO) 9.4 /CMM (1.8-8.9); NEUTROPHILS % (AUTO) 65.7 % (43.0-81.0); PLATELET COUNT (AUTO) 646 /CMM (150-450); RED BLOOD CELL COUNT(AUTO) 3.28 MIL/uL (4.0-5.2); WHITE BLOOD COUNT (AUTO) 14.3 K/uL (4.3-11.0)
[2020-10-18 04:57] LABS: CALCIUM, SERUM 7.8 mg/dL (8.5-10.1); CARBON DIOXIDE 28 mmol/L (21-32); CHLORIDE 106 mmol/L (98-107); CREATININE 0.9 mg/dL (0.6-1.3); GLUCOSE 263 mg/dL (74-106); POTASSIUM 5.7 mmol/L (3.5-5.1); SODIUM SERUM 137 mmol/L (136-145); UREA NITROGEN, BLOOD 34 mg/dL (7-18)
[2020-10-18 05:04] LABS: ALANINE AMINOTRANSFERASE 12 U/L (12-78); ALKALINE PHOSPHATASE 118 U/L (46-116); ASPARTATE AMINOTRANSFERASE 15 U/L (15-37); LIPASE 60 U/L (73-393); TOTAL PROTEIN, SERUM 6.8 g/dL (6.4-8.2)
[2020-10-18 05:06] LABS: ALBUMIN 1.1 g/dL (3.4-5.0)
[2020-10-18] MEDS ORDERED: ONDANSETRON HCL/PF 4 MG/2 ML VIAL IV ONE (05:30)
--- NOTE | 2020-10-18 05:41 | NUR ---
DR. QUIROZ PAGED PER EDNA MANDEL ORDER.
[2020-10-18 05:42] LABS: BILIRUBIN,URINE Negative (NEGATIVE); COLOR,URINE YELLOW (YELLOW); LEUKOCYTE ESTERASE ,URINE Negative (NEGATIVE); NITRITE, URINE Negative (NEGATIVE); PH,URINE 5.5 (5.0-8.0); PROTEIN,URINE >=300 mg/dl (NEGATIVE); UGLUCOSE 250 MG/DL mg/dL (NEGATIVE); UROBILINOGEN,URINE 0.2 EU/dL (0.2)
[2020-10-18 05:54] LABS: BACTERIA,URINE Many /HPF (None Seen); SQUAMOUS EPITHELIAL CELL,UR Moderate /HPF (None Seen)
[2020-10-18 05:55] LABS: URINE AMORPHOUS URATE Moderate /HPF (None Seen)
[2020-10-18] MEDS ORDERED: CEFTRIAXONE 1GM BAG (ER ONLY) 1 GM/50 ML PIGGYBACK IV ONE (06:30)
[2020-10-18] MEDS ORDERED: diphenhydrAMINE HCL 25 MG CAPSULE ONE (06:40)
[2020-10-18] MEDS ORDERED: CEFTRIAXONE 1GM BAG (ER ONLY) 50 ML IV ONE (06:41)
[2020-10-18] MEDS ORDERED: ACETAMINOPHEN 325 MG TABLET PO PRN (07:00)
[2020-10-18 07:09] LABS: IRON, SERUM 35 ug/dl (50-175); TOTAL IRON BINDING CAPACITY 197 ug/dl (250-450)
[2020-10-18] MEDS ORDERED: DIPHENHYDRAMINE HCL 12.5 MG/5 ML UDC PO ONE (07:30)
--- NOTE | 2020-10-18 08:09 | NUR ---
CALLED HOUSE SUP, AWAITING BED.
--- NOTE | 2020-10-18 08:20 | NUR ---
TELE 326.2
--- NOTE | 2020-10-18 08:45 | NUR ---
REPORT GIVEN TO NURSE PRATT
[2020-10-18] MEDS: PROSOURCE / PROSTAT (PYXIS) 30 ML UDC PO SCH ×3 (09:00→16:44)
--- NOTE | 2020-10-18 09:37 | NUR ---
THE PATIENT IS TRANSFERED TO ASSIGNED ROOM IN STABLE CONDITION AND PER POLICY.
--- NOTE | 2020-10-18 09:40 | NUR ---
RN MS NOTES RECEIVED PT FROM E.R. STAFF VIA NICOLA, PT IS AWAKE, ALERT AND ORIENTED, WITH COMPLAINT OF GENERALIZED PAIN, ASSISTED TO BED, MADE COMFORTABLE, ROOM SET UP ORIENTATION PROVIDED TO PT, VERBALIZED UNDERSTANDING, AWAITING FURTHER ORDERS FROM MD.
[2020-10-18 09:45] VITALS: BP 190/87
[2020-10-18] MEDS ORDERED: PIPERACILLIN /TAZOBACTAM 3.375 G in IV D5W 100 ML IV SCH (10:00)
[2020-10-18] MEDS ORDERED: DEXTROSE 50%-WATER 50 ML DISP.SYRIN IV PRN (11:30)
[2020-10-18] MEDS: PANTOPRAZOLE 40 MG TABLET.DR PO SCH (12:09)
[2020-10-18] MEDS: AMLODIPINE BESYLATE 5 MG TABLET PO SCH (12:09)
[2020-10-18] MEDS: DOCUSATE SODIUM 100 MG CAPSULE PO SCH ×2 (12:09→16:44)
[2020-10-18] MEDS: HYDROCODONE/APAP 5/325MG TABLET PO PRN ×2 (12:12→16:46)
[2020-10-18] MEDS: ONDANSETRON HCL/PF 4 MG/2 ML VIAL IVP PRN (12:12)
[2020-10-18] MEDS: DAKINS QUARTER STRENGTH (0.125%) 480 ML BOTTLE TOP SCH (12:29)
[2020-10-18] MEDS: THERAHONEY GEL 1.5 OZ TUBE TP SCH (12:30)
[2020-10-18] MEDS: HYDROGEL DRESSING 90 GM TUBE TP SCH (12:30)
[2020-10-18] MEDS: FERROUS SULFATE (325 MG) 325 MG/TAB TABLET PO SCH ×2 (12:31→16:43)
[2020-10-18] MEDS: CEFEPIME 1 GM in IV D5W 50 ML IV SCH ×2 (12:39→22:43)
[2020-10-18] MEDS: BLOOD SUGAR DIAGNOSTIC 1 EACH STRIP IN SCH ×3 (12:50→21:31)
[2020-10-18] MEDS: INSULIN REGULAR, HUMAN 100 UNIT/ML 3 ML VIAL SQ PRN ×2 (12:50→17:40)
[2020-10-18] MEDS ORDERED: PIPERACILLIN /TAZOBACTAM 3.375 G in IV D5W 50 ML IV SCH (13:00)
--- NOTE | 2020-10-18 13:50 | NUR ---
"Research Animal Attendant consult: Research Animal Attendant consult requested for homelessness. Patient is a 54-year-old, female. SW met with patient at her bedside on the med-surg unit. Patient was alert and oriented x4. Patient presented calm and well-groomed. Per chart, patient was brought in by ambulance on 10/18/20 with complaints of chronic foot and buttock pain, and a headache. Patient is homeless and currently stays at [facility] ([address] [place] [address]; ). Patient stated that she uses a wheelchair. SW asked patient if she is currently receiving a source of income and patient stated that she has no income. SW asked patient if she has a history of substance use and patient denied history. Patient denied history of mental illness. Patient denied current suicidal or homicidal ideation. SW offered patient homeless resources and patient accepted the resources and thanked SW. Patient signed homeless waiver and SW filed waiver in the patients chart. SW discussed discharge plans with the patient and patient requested an alternative assisted living placement that is wheelchair accessible. SW will notify case management of patients request. PLAN: SW will notify case management of patients request to locate an alternative assisted living placement that is wheelchair accessible. SW will remain available as needed. Year-round shelters: [facility] [address] [place] [address] ; [facility] [address] [place] [address]; [facility] [id number] [facility]. [facility] [address] SPA 4 | [facility] [place] Provider: First to Serve Address: [address], [address] # of Beds: 48 Population Served: [facility] Provider: First to Serve Address: [address] [facility], [address] # of Beds: 73 Population Served: [facility] 6 | [facility] Provider: [facility] Address: [address] [facility], [address] # of Beds: 63 Population Served: [facility] 3 | [facility] Provider: [facility] [place] Address: [address] [facility] [place], [address] # of Beds: 75 Population Served: [facility] 8 | [facility] Provider: [place] Address: [address] [facility], [address] # of Beds: 80 Population Served: [facility] SPA 1 | [facility] Provider: [place] Address: [address] [place] [address], [address] # of Beds: 85 Population Served: [facility] 2 | [facility] Provider: [facility] Address: Confidential (please call for location) # of Beds: 52 Population Served: [facility] 4 | [facility] Provider: [facility] Address: [address] [place] [address], [facility] # of Beds: 49 Population Served: [facility] Provider: First To Serve Address: [address] [place] [address], [facility] # of Beds: 27 Population Served: [facility] Hygiene: [facility] [place] [facility]: [address] [facility] ; [facility] [address] [facility] ; [facility] [address] [facility] . Food Resources: [place] [facility] at [facility]- [address] [facility]; Meet Each Need with [facility] ([facility]) [address] [facility]; [facility] [address] [facility]; [facility] [address] [facility]. Mental Health resources provided: [facility] [address] , [place] [address] ; [facility] [address] [facility] [address], [place] [address] ; [facility] [address], [place], [place] [id number] ; [facility] [address] [place], [place] [id number] Healthcare Clinics: [facility] [address] [place], [address] [place]. [place] ; [facility] [address] [facility] [address] [facility] [address]; [facility] [address] [facility] [phone]) [phone] Counseling--Outpatient [facility] [address] [facility], [place] [address] (Specializes in in-depth psychotherapy for emotional distress: anxiety, depression, interpersonal conflicts, life transitions, childhood abuse) PSYCHIATRIC OUTPATIENT SERVICES [facility] Partial Hospitalization and Intensive Outpatient Program (Managed Care and [place] Only) [address] [facility] [address] [facility] Partial Hospitalization and Outpatient Program [address] [place], [place] [phone] [facility] Partial Hospitalization and Outpatient Program [address] [place], [place] [phone] VICKI VALDEZ [facility] [address] [facility]. [address] [place], [place] [phone] [facility] Partial Hospitalization and Outpatient Program [address] [place], [place] [phone] "
--- NOTE | 2020-10-18 13:55 | NUR ---
Arch Support Maker note: TRUMAN notified JENNIFER Elliott of patient's request to locate an alternative assisted living placement that is wheelchair accessible. JENNIFER Elliott to follow up. No further SS intervention at this time, however, SW will remain available as needed.
--- NOTE | 2020-10-18 14:00 | NUR ---
RN MS NOTES PT REFUSES HER BUTTOCKS TO BE CHECKED, EXPLAINED THE PURPOSE AND IMPORTANCE OF DOCUMENTING SKIN ASSESSMENT, BUT STILL REFUSED, WANTS TO BE LEFT ALONE.
[2020-10-18 16:00] VITALS: BP 136/63
[2020-10-18] MEDS ORDERED: diphenhydrAMINE HCL ELIX 25 MG/10 ML UDC PO PRN (17:00)
[2020-10-18] MEDS: diphenhydrAMINE HCL 25 MG CAPSULE PO PRN ×2 (17:46→22:54)
--- NOTE | 2020-10-18 18:07 | NUR ---
RN MS NOTES PT RESTING, EASILY AROUSED, ALERT AND ORIENTED, PAIN MEDS GIVEN FOR GENERALIZED PAIN, VERBALIZED RELIEF, PT SEEN BY DR. LAI TODAY, BEDSIDE WOUND DEBRIDEMENT TO LEFT LOWER EXTREMITY PERFORMED WITH PT'S CONSENT, WOUND TREATMENT DONE, PT ALSO SEEN BY DR. BLANCO, PLAN OF CARE DISCUSSED WITH PT, VERBALIZED UNDERSTANDING, NEEDS ATTENDED.
--- NOTE | 2020-10-18 19:54 | NUR ---
MS RN OPENING NOTE RECEIVED PT AWAKE IN BED. A/O X4. PT STABLE ON ROOM AIR. NO SOB OR S/S RESPIRATORY DISTRESS NOTED. PT HAS NO C/O PAIN AT THIS TIME. IV ACCESS IN LEFT SHOULDER #22, INTACT AND PATENT. SAFETY MEASURES MAINTAINED. BED IN LOWEST LOCKED POSITION, HOB ELEVATED, SIDE RAILS UP X2. CALL LIGHT AND TABLE WITHIN REACH. WILL CONTINUE WITH PLAN OF CARE.
[2020-10-18 20:00] VITALS: BP 142/60
[2020-10-18] MEDS ORDERED: VANCOMYCIN 1 GM in IV D5W 250 ML IV SCH (21:00)
[2020-10-18] MEDS: VANCOMYCIN HCL 0.75 GM in IV D5W 250 ML IV SCH (21:09)
[2020-10-18] MEDS: INSULIN GLARGINE, 100 UNIT/ML CARTRIDGE SQ SCH (21:51)
--- NOTE | 2020-10-18 21:51 | NUR ---
BS NOTED AT 184. ADMINISTERED LANTUS SQ 12 UNITS HS ORDERED. WITHHELD 3 UNITS OF REGULAR INSULIN.
[2020-10-18] MEDS: clonazePAM 0.5 MG TABLET PO PRN (23:26)
--- NOTE | 2020-10-18 23:30 | NUR ---
PT C/O ANXIETY AND WAS NOTED WITH AGITATION. RECEIVED ORDERS FROM DR. LÓPEZ TO ADMINISTER KLONOPIN 0.5 MG PO Q8H PRN FOR ANXIETY. ORDERS READ BACK, ENTERED, AND CARRIED OUT. WILL CONTINUE TO MONITOR.
--- NOTE | 2020-10-19 03:00 | NUR ---
PT DEMANDED ANOTHER DOSE OF KLONOPIN, WITNESSED PT YELLING AT STAFF. INFORMED PT THAT LAST KLONOPIN 0.5MG PO WAS GIVEN AT 2326 AND IS Q8H PRN. EDUCATED PT ON SIDE EFFECTS OF MEDICATIONS. PT VERBALIZED UNDERSTANDING. PT STATED THAT SHE "HAS A FEVER." TEMP NOTED AT 97.6. PT REFUSED COOLING MEASURES AT THIS TIME. WILL CONTINUE TO MONITOR.
[2020-10-19] MEDS: ONDANSETRON HCL/PF 4 MG/2 ML VIAL IVP PRN (04:37)
--- NOTE | 2020-10-19 04:37 | NUR ---
PT C/O NAUSEA. NO EMESIS NOTED AT THIS TIME. PER PT REQUEST, ADMINISTERED ZOFRAN 4MG IVP Q6H PRN FOR NAUSEA/VOMITING. WILL CONTINUE TO MONITOR.
[2020-10-19 06:39] LABS: BASOPHILS # (AUTO) 0.1 /CMM (0.0-0.2); BASOPHILS % (AUTO) 0.5 % (0.0-2.0); EOSINOPHILS % (AUTO) 3.9 % (0.0-6.0); HEMATOCRIT 24 % (33-45); HEMOGLOBIN 7.8 g/dL (11.5-14.8); LYMPHOCYTES # (AUTO) 2.8 /CMM (0.8-4.8); LYMPHOCYTES % (AUTO) 18.8 % (20.0-44.0); MEAN CORPUSCULAR HGB CONC 32 g/dl (31.0-36.0); MEAN CORPUSCULAR VOLUME 79 fL (82-100); MONOCYTES # (AUTO) 1.2 /CMM (0.1-1.30); MONOCYTES % (AUTO) 8.1 % (2.0-12.0); NEUTROPHILS # (AUTO) 10.3 /CMM (1.8-8.9); NEUTROPHILS % (AUTO) 68.7 % (43.0-81.0); PLATELET COUNT (AUTO) 623 /CMM (150-450); RED BLOOD CELL COUNT(AUTO) 3.06 MIL/uL (4.0-5.2); WHITE BLOOD COUNT (AUTO) 15.1 K/uL (4.3-11.0)
[2020-10-19] MEDS: BLOOD SUGAR DIAGNOSTIC 1 EACH STRIP IN SCH ×4 (06:40→22:00)
[2020-10-19] MEDS: diphenhydrAMINE HCL 25 MG CAPSULE PO PRN ×2 (06:55→16:46)
--- NOTE | 2020-10-19 07:03 | NUR ---
MS RN CLOSING NOTE PT IS IN BED WITH EYES CLOSED, EASILY AROUSED. A/O X4. PT STABLE ON ROOM AIR. NO SOB OR S/S RESPIRATORY DISTRESS NOTED. PT HAS NO C/O PAIN AT THIS TIME. IV ACCESS IS INTACT, PATENT, AND FLUSHING WELL. ALL NEEDS HAVE BEEN MET. SAFETY PRECAUTIONS MAINTAINED AT ALL TIMES. BED IN LOWEST LOCKED POSITION, HOB ELEVATED, SIDE RAILS UP X2. CALL LIGHT AND TABLE WITHIN REACH. WILL ENDORSE TO ONCOMING NURSE FOR MELVIN.
[2020-10-19 07:06] LABS: CALCIUM, SERUM 7.7 mg/dL (8.5-10.1); CREATININE 0.6 mg/dL (0.6-1.3); POTASSIUM 5.4 mmol/L (3.5-5.1)
--- NOTE | 2020-10-19 07:44 | NUR ---
MS/RN OPENING NOTES RECEIVED PT IN BED. A/=LERT AND ORIENTED X4. ABLE TO MAKE NEEDS KNOWN. PT STABLE ON ROOM AIR. NO SOB OR S/S RESPIRATORY DISTRESS NOTED. PT HAS NO C/O PAIN AT THIS TIME. IV ACCESS IN LEFT SHOULDER #22, INTACT AND PATENT. SAFETY MEASURES IN PLACE. BED IN LOWEST LOCKED POSITION, HOB ELEVATED, SIDE RAILS UP X2. CALL LIGHT AND TABLE WITHIN REACH. WILL CONTINUE TO MONITOR PATIENT.
[2020-10-19] MEDS: PANTOPRAZOLE 40 MG TABLET.DR PO SCH (07:50)
[2020-10-19 08:00] VITALS: BP 149/70
[2020-10-19] MEDS: CEFEPIME 1 GM in IV D5W 50 ML IV SCH ×2 (08:00→20:55)
[2020-10-19] MEDS: DOCUSATE SODIUM 100 MG CAPSULE PO SCH ×2 (08:42→16:46)
[2020-10-19] MEDS: FERROUS SULFATE (325 MG) 325 MG/TAB TABLET PO SCH ×2 (08:42→16:46)
[2020-10-19] MEDS: AMLODIPINE BESYLATE 5 MG TABLET PO SCH (08:43)
[2020-10-19] MEDS: PROSOURCE / PROSTAT (PYXIS) 30 ML UDC PO SCH ×4 (08:43→16:55)
--- NOTE | 2020-10-19 08:54 | NUR ---
PATIENT REFUSED PROSOURCE. OFFERED AGAIN, STILL REFUSED.
[2020-10-19] MEDS: clonazePAM 0.5 MG TABLET PO PRN ×2 (08:58→16:55)
[2020-10-19] MEDS: DAKINS QUARTER STRENGTH (0.125%) 480 ML BOTTLE TOP SCH (08:59)
[2020-10-19] MEDS: HYDROGEL DRESSING 90 GM TUBE TP SCH (08:59)
[2020-10-19] MEDS: THERAHONEY GEL 1.5 OZ TUBE TP SCH ×2 (09:00→09:05)
[2020-10-19] MEDS: VANCOMYCIN HCL 0.75 GM in IV D5W 250 ML IV SCH ×2 (09:40→21:50)
[2020-10-19] MEDS: ALBUMIN 25% 25 GM in PREMIX 1 EA IV SCH ×3 (12:18→23:00)
--- NOTE | 2020-10-19 12:30 | NUR ---
BLOOD SUGAR RESULT IS 218. PATIENT REFUSED LUNCH AND WANTED TO SLEEP. PATIENT ALSO REFUSED INSULIN SLIDING SCALE INJECTION. CHARGE NURSE ENRIQUE AWARE. WILL CONTINUE TO MONITOR.
[2020-10-19] MEDS ORDERED: FLUCONAZOLE (100 MG) 100 MG TABLET PO ONE (14:00)
[2020-10-19 16:00] VITALS: BP 151/98
--- NOTE | 2020-10-19 17:17 | NUR ---
PATIENT REFUSED RIGHT BREAST SCAN. EXPLAINED BENEFITS BUT PATIENT STILL REFUSED.
[2020-10-19] MEDS: INSULIN REGULAR, HUMAN 100 UNIT/ML 3 ML VIAL SQ PRN (17:21)
--- NOTE | 2020-10-19 19:25 | NUR ---
MS RN CLOSING NOTE PT IN BED WITH EYES CLOSED, EASILY AROUSED. A/O X4. PT STABLE ON ROOM AIR. NO SOB OR S/S RESPIRATORY DISTRESS NOTED. PT HAS NO C/O PAIN AT THIS TIME. IV ACCESS IS INTACT, PATENT, AND FLUSHING WELL. ALL NEEDS HAVE BEEN MET. SAFETY PRECAUTIONS MAINTAINED AT ALL TIMES. BED IN LOWEST LOCKED POSITION, HOB ELEVATED, SIDE RAILS UP X2. CALL LIGHT AND TABLE WITHIN REACH. WILL ENDORSE TO ONCOMING NURSE FOR MELVIN.
--- NOTE | 2020-10-19 19:30 | NUR ---
MS RN OPENING NOTES PATIENT RESTING IN BED, ALERT AND ORIENTED X 4, PATIENT ABLE TO MAKE NEEDS KNOWN. PATIENT STABLE ON ROOM AIR, NO S/S OF DISTRESS OR SHORTNESS OF BREATH NOTED, NO COMPLAINTS OF PAIN AT THIS TIME. LEFT SHOULDER IV #22G SALINE LOCKED, FLUSHES WELL. PATIENT INCONTINENT. SAFETY MEASURES IN PLACE, CALL LIGHT WITHIN REACH, BED ALARM ON, BED LOCKED IN LOWEST POSITION. WILL CONTINUE TO MONITOR. WILL CONTINUE PLAN OF CARE
[2020-10-19 20:17] VITALS: BP 134/52
--- NOTE | 2020-10-19 20:28 | NUR ---
MS RN NOTES PATIENT REPORTING 10/10 PAIN IN HER LEGS, PATIENT ONLY HAS AN ORDER FOR NORCO 5-325 MG BUT PATIENT STATED IT DOESN'T HELP WITH HER PAIN AND WANTS MORPHINE. NOTIFIED DR. LÓPEZ. NO NEW ORDERS GIVEN. DR. LÓPEZ STATED TO WAIT TO ASK DAY TIME DOCTORS FOR MORPHINE ORDER. ORDERS READBACK AND VERIFIED. WILL CONTINUE TO MONITOR
--- NOTE | 2020-10-19 21:05 | NUR ---
MS RN NOTES NOTIFIED PATIENT THAT SHE CAN ONLY HAVE NORCO FOR PAIN ORDERED. PATIENT UPSET AND NOW REFUSING IV MAXIPIME ABX. PATIENT ALSO STATED THAT SHE DOESN'T WANT ANY MEDICATIONS AND WILL REFUSE ALL MEDICATIONS UNTIL HER PAIN IS TREATED WITH MORPHINE. NOTIFIED DR. LÓPEZ OF PATIENT'S REFUSAL OF MEDICATIONS. NO NEW ORDERS AT THIS TIME. EXPLAINED RISKS AND BENEFITS TO PATIENT AND ATTEMPTED TO CONVINCE TO TRY THE NORCO TO SEE IF IT HELPS HER PAIN. PATIENT STILL REFUSED. WILL CONTINUE TO MONITOR
--- NOTE | 2020-10-19 21:50 | NUR ---
MS RN NOTES PATIENT REFUSING IV VANCO MEDICATION. EXPLAINED TO PATIENT THE BENEFITS AND RISKS OF NOT TAKING MEDICATION. PATIENT VERBALIZED UNDERSTANDING BUT STILL REFUSED. STATED SHE WON'T TAKE ANY MEDICATIONS UNTIL HER PAIN IS TREATED WITH MORPHINE. MD JACKSON
[2020-10-19] MEDS: INSULIN GLARGINE, 100 UNIT/ML CARTRIDGE SQ SCH (22:00)
--- NOTE | 2020-10-19 22:21 | NUR ---
MS RN NOTES PATIENT REFUSING BLOOD SUGAR CHECK AND LANTUS INSULIN. EXPLAINED THE RISKS AND BENEFITS TO PATIENT. PATIENT STILL REFUSING. CHARGE NURSE LAVINIA JACKSON. WILL CONTINUE TO MONITOR
--- NOTE | 2020-10-19 23:56 | NUR ---
MS RN NOTES PATIENT REFUSING IV ALBUMIN, EXPLAINED TO THE PATIENT THAT HER ALBUMIN LEVELS WERE LOW AND THE RISKS AND BENEFITS OF TAKING MEDICATION. PATIENT INSISTED ON REFUSING. NOTIFIED CHARGE NURSE LAVINIA. DR. LÓPEZ PREVIOUSLY MADE AWARE THAT PATIENT IS REFUSING ALL MEDICATIONS UNTIL SHE GETS MORPHINE PAIN MEDICATION. NO NEW ORDERS FOR MORPHINE. WILL CONTINUE TO MONITOR
[2020-10-20] MEDS: clonazePAM 0.5 MG TABLET PO PRN ×2 (00:59→16:20)
[2020-10-20] MEDS: diphenhydrAMINE HCL 25 MG CAPSULE PO PRN ×2 (00:59→17:33)
--- NOTE | 2020-10-20 00:59 | NUR ---
MS RN NOTES PATIENT REQUESTED PRN KLONOPIN FOR ANXIETY AND BENADRYL FOR ITCHY LEGS. MEDICATIONS GIVEN ORDERED. WILL CONTINUE TO MONITOR
--- NOTE | 2020-10-20 02:38 | NUR ---
MS RN NOTE PATIENT REPORTING EXCRUCIATING PAIN IN BACK. OFFERED PATIENT NORCO AGAIN SINCE THAT IS THE ONLY PAIN MEDICATION ORDER PT HAS AND DR. LÓPEZ DID NOT GIVE ANY NEW ORDERS. PATIENT REFUSED NORCO STATING IT DOESN'T HELP HER PAIN. PT BECAME AGITATED AND STARTED YELLING. WILL CONTINUE TO MONITOR
[2020-10-20] MEDS: ALBUMIN 25% 25 GM in PREMIX 1 EA IV SCH (05:00)
--- NOTE | 2020-10-20 05:12 | NUR ---
MS RN NOTE PATIENT REFUSED IV ALBUMIN. EXPLAINED TO PATIENT THAT HER ALBUMIN LEVELS ARE VERY LOW AND THE RISKS OF NOT TAKING MEDICATION. BENEFITS OF MEDICATION ALSO EXPLAINED. PATIENT INSISTED ON REFUSING. CHARGE NURSE LAVINIA AND MD LÓPEZ AWARE. WILL CONTINUE TO MONITOR
[2020-10-20 06:34] LABS: BASOPHILS # (AUTO) 0.1 /CMM (0.0-0.2); BASOPHILS % (AUTO) 1.2 % (0.0-2.0); EOSINOPHILS % (AUTO) 3.2 % (0.0-6.0); HEMATOCRIT 25 % (33-45); HEMOGLOBIN 7.8 g/dL (11.5-14.8); LYMPHOCYTES # (AUTO) 2.5 /CMM (0.8-4.8); LYMPHOCYTES % (AUTO) 19.9 % (20.0-44.0); MEAN CORPUSCULAR HGB CONC 32 g/dl (31.0-36.0); MEAN CORPUSCULAR VOLUME 80 fL (82-100); MONOCYTES % (AUTO) 8.4 % (2.0-12.0); NEUTROPHILS # (AUTO) 8.4 /CMM (1.8-8.9); NEUTROPHILS % (AUTO) 67.3 % (43.0-81.0); PLATELET COUNT (AUTO) 616 /CMM (150-450); RED BLOOD CELL COUNT(AUTO) 3.08 MIL/uL (4.0-5.2); WHITE BLOOD COUNT (AUTO) 12.5 K/uL (4.3-11.0)
--- NOTE | 2020-10-20 06:39 | NUR ---
MS RN CLOSING NOTE PATIENT RESTING IN BED, ALERT AND ORIENTED X 4, PATIENT ABLE TO MAKE NEEDS KNOWN. PATIENT STABLE ON ROOM AIR, NO S/S OF DISTRESS OR SHORTNESS OF BREATH NOTED. LEFT SHOULDER IV #22G SALINE LOCKED. PATIENT REPORTING PAIN THROUGHOUT SHIFT BUT REFUSING NORCO MULTIPLE TIMES, STATES SHE ONLY WANTS MORPHINE BUT HAS NO ORDER. PATIENT REFUSED ALL MEDICATIONS AND ACCU CHECKS THROUGHOUT SHIFT, MD LÓPEZ AND CHARGE NURSE LAVINIA AWARE. PATIENT ALSO STATING SHE WANTS TO BE TRANSFERRED TO ANOTHER HOSPITAL. WILL ENDORSE TO DAY SHIFT NURSE FOR CONTINUITY OF CARE. SAFETY MEASURES IN PLACE, CALL LIGHT WITHIN REACH, BED ALARM ON, BED LOCKED IN LOWEST POSITION.
[2020-10-20 07:29] LABS: CALCIUM, SERUM 7.8 mg/dL (8.5-10.1); CREATININE 0.8 mg/dL (0.6-1.3); PHOSPHORUS 3.5 mg/dL (2.5-4.9); POTASSIUM 5.2 mmol/L (3.5-5.1)
[2020-10-20] MEDS: BLOOD SUGAR DIAGNOSTIC 1 EACH STRIP IN SCH ×4 (07:30→22:25)
[2020-10-20] MEDS: PANTOPRAZOLE 40 MG TABLET.DR PO SCH (07:30)
--- NOTE | 2020-10-20 07:40 | NUR ---
MS/RN OPENING NOTES RECEIVED PT IN BED. ASLEEP BUT EASILY AROUSABLE. ALERT AND ORIENTED X4. ABLE TO MAKE NEEDS KNOWN. PT STABLE ON ROOM AIR. NO SOB OR S/S RESPIRATORY DISTRESS NOTED. PT HAS NO C/O PAIN AT THIS TIME. IV ACCESS IN LEFT SHOULDER #22, INTACT AND PATENT. SAFETY MEASURES IN PLACE. BED IN LOWEST LOCKED POSITION, HOB ELEVATED, SIDE RAILS UP X2. CALL LIGHT AND TABLE WITHIN REACH. WILL CONTINUE TO MONITOR PATIENT.
[2020-10-20 07:43] LABS: THYROID STIMULATING HORMONE 5.748 uIU/mL (0.358-3.74)
[2020-10-20 07:44] LABS: MAGNESIUM 1.2 mg/dL (1.8-2.4)
[2020-10-20 08:00] VITALS: BP 173/80
--- NOTE | 2020-10-20 08:03 | NUR ---
MS/RN NOTES LABS CALLED AND NOTIFIED RN THAT MAGNESIUM LEVEL IS CRITICAL LOW AT 1.2. DR. QUINTERO NOTIFIED IN PERSON. ALSO NOTIFIED THAT PATIENT REFUSED BLOOD SUGAR CHECK THIS MORNING AND ALBUMIN IV LAST NIGHT PER RN ENDORSEMENT. PER DR. QUINTERO, DISCONTINUE ALBUMIN IV. WILL CARRY OUT ORDER.
--- NOTE | 2020-10-20 08:47 | NUR ---
PATIENT REFUSED BLOOD SUGAR CHECK. AWARE.
[2020-10-20] MEDS: AMLODIPINE BESYLATE 5 MG TABLET PO SCH (09:00)
[2020-10-20] MEDS: CEFEPIME 1 GM in IV D5W 50 ML IV SCH ×2 (09:00→21:10)
[2020-10-20] MEDS: DOCUSATE SODIUM 100 MG CAPSULE PO SCH ×2 (09:00→17:33)
[2020-10-20] MEDS: DAKINS QUARTER STRENGTH (0.125%) 480 ML BOTTLE TOP SCH (09:00)
[2020-10-20] MEDS: PROSOURCE / PROSTAT (PYXIS) 30 ML UDC PO SCH ×3 (09:00→17:00)
[2020-10-20] MEDS: HYDROGEL DRESSING 90 GM TUBE TP SCH (09:00)
[2020-10-20] MEDS: THERAHONEY GEL 1.5 OZ TUBE TP SCH ×2 (09:00)
[2020-10-20] MEDS: Magnesium 1GM/D5W 100ML PREMIX 100 ML IV SCH ×4 (09:30→11:39)
[2020-10-20] MEDS ORDERED: CLONIDINE HCL 0.1 MG TABLET PO PRN (10:00)
[2020-10-20] MEDS: VANCOMYCIN HCL 0.75 GM in IV D5W 250 ML IV SCH ×2 (10:08→21:59)
--- NOTE | 2020-10-20 12:00 | NUR ---
BLOOD SUGAR CHECK RESULT IS 166, WITHHELD INSULIN INJECTION ON SLIDING SCALE BECAUSE PATIENT DOES NOT WANT TO EAT LUNCH. ONLY HAD [facility]OTH FOR LUNCH. WILL CONTINUE TO MONITOR.
[2020-10-20] MEDS ORDERED: MORPHINE SULFATE INJ 2 MG/ML DISP.SYRIN IVP ONE (13:00)
[2020-10-20] MEDS: SOD FERRIC GLUC 125 MG in IV NS 0.9% 100 ML IV SCH (14:00)
--- NOTE | 2020-10-20 14:50 | NUR ---
IV ON LEFT SHOULDER NOTED TO BE INFILTRATED. SWELLING AND PAIN PER PATIENT. REPORTED TO DR. QUINTERO AND HE ORDERED TO DO A MIDLINE IV. CHRISSIE PAVON WAS ABLE TO SUCCESSFULLY INSERT A MIDLINE ON RIGHT UPPER ARM. RN DISCONTINUED THE PREVIOUS IV ACCESS ON LEFT SHOULDER.
--- NOTE | 2020-10-20 15:45 | NUR ---
CALLED AND NOTIFIED PHARMACY THAT PATIENT IS READY TO DO THE FERRLICIT 125MG VIA IV. PHARMACY ACKNOWLEDGED.
[2020-10-20 16:00] VITALS: BP 154/72
[2020-10-20] MEDS ORDERED: IOHEXOL-300 100 ML VIAL IV ONE (16:12)
[2020-10-20] MEDS ORDERED: CT SWABBABLE VALVE TRANS SET 1 EA INFUS.SET MC ONE (16:12)
[2020-10-20] MEDS ORDERED: IV NS 0.9% 250 ML IV ONE (16:12)
--- NOTE | 2020-10-20 16:34 | NUR ---
PATIENT REFUSED INCONTINENCE CARE WITH VENESSA KELLEY ALL DAY. PATIENT WAS VERY UNCOOPERATIVE WITH THE PLAN OF CARE. PATIENT REFUSED FERRLICIT IV. NOTIFIED DR. QUINTERO AND THE PHARMACY. PATIENT REFUSED CT SCAN, MD NOTIFIED. RN WAS ONLY ABLE TO ADMINISTER 2 BAGS OF MAGNESIUM, THE REST OF THE BAGS WERE REFUSED BY PATIENT. EXPLAINED PURPOSE AND RISK, PATIENT STILL REFUSED. DR. QUINTERO NOTIFIED. WILL CONTINUE TO MONITOR PATIENT.
[2020-10-20] MEDS: INSULIN REGULAR, HUMAN 100 UNIT/ML 3 ML VIAL SQ PRN (18:06)
--- NOTE | 2020-10-20 19:30 | NUR ---
MS OPENING NOTE PATIENT RESTING IN BED, ALERT AND ORIENTED X 4, PATIENT ABLE TO MAKE NEEDS KNOWN. PATIENT STABLE ON ROOM AIR, NO S/S OF DISTRESS OR SHORTNESS OF BREATH NOTED, NO COMPLAINTS OF PAIN AT THIS TIME. RIGHT UPPER ARM MIDLINE #18G SALINE LOCKED. PATIENT INCONTINENT. SAFETY MEASURES IN PLACE, CALL LIGHT WITHIN REACH, BED ALARM ON, BED LOCKED IN LOWEST POSITION. WILL CONTINUE TO MONITOR. WILL CONTINUE PLAN OF CARE
--- NOTE | 2020-10-20 19:30 | NUR ---
MS/RN CLOSING NOTES PT IN BED. AWAKE. ALERT AND ORIENTED X4. ABLE TO MAKE NEEDS KNOWN. PT STABLE ON ROOM AIR. NO SOB OR S/S RESPIRATORY DISTRESS NOTED. IV ACCESS ON RIGHT UPPER ARM MIDLINE 18G IS INTACT AND PATENT. SAFETY MEASURES IN PLACE. BED IN LOWEST LOCKED POSITION, HOB ELEVATED, SIDE RAILS UP X2. CALL LIGHT AND TABLE WITHIN REACH. WILL ENDORSE TO THE NEXT SHIFT FOR CONTINUITY OF CARE.
--- NOTE | 2020-10-20 19:49 | NUR ---
MS RN NOTE PATIENT TAKEN DOWN FOR CT OF CHEST, ABDOMEN, AND PELVIS WITH CONTRAST. CONSENT SIGNED. PATIENT IN STABLE CONDITION
[2020-10-20 20:00] VITALS: BP 150/70
--- NOTE | 2020-10-20 20:04 | NUR ---
MS RN NOTE PATIENT RETURNED FROM CT IN STABLE CONDITION. NO S/S OF DISTRESS OR SHORTNESS OF BREATH NOTED. WILL CONTINUE TO MONITOR
--- NOTE | 2020-10-20 20:10 | NUR ---
MS RN NOTE PATIENT REFUSED BREAST ULTRASOUND. STATED SHE IS TOO OVERWHELMED AND IN PAIN AND JUST WANTS TO REST AND THAT SHE WILL DO IT TOMORROW
[2020-10-20] MEDS: MORPHINE SULFATE INJ 2 MG/ML DISP.SYRIN IV PRN (21:05)
[2020-10-20] MEDS: INSULIN GLARGINE, 100 UNIT/ML CARTRIDGE SQ SCH (22:30)
--- NOTE | 2020-10-20 22:30 | NUR ---
MS RN NOTE PATIENT'S BLOOD SUGAR IS 172. GAVE THE LANTUS 12 UNITS ORDERED. PATIENT REFUSED THE 3 UNITS OF REGULAR INSULIN FOR SLIDING SCALE. EXPLAINED THE RISKS AND BENEFITS TO PATIENT, PATIENT VERBALIZED UNDERSTANDING. WILL CONTINUE TO MONITOR
[2020-10-21] MEDS: clonazePAM 0.5 MG TABLET PO PRN ×2 (00:36→09:10)
[2020-10-21] MEDS: diphenhydrAMINE HCL 25 MG CAPSULE PO PRN ×2 (01:50→22:42)
--- NOTE | 2020-10-21 02:14 | NUR ---
MS RN NOTES PATIENT REFUSED PHOTOS OF GROIN AND BUTTOCKS. EXPLAINED THE IMPORTANCE AND BENEFITS TO PATIENT, PATIENT VERBALIZED UNDERSTANDING.
[2020-10-21] MEDS: MORPHINE SULFATE INJ 2 MG/ML DISP.SYRIN IV PRN ×3 (03:58→21:27)
[2020-10-21 06:25] LABS: BASOPHILS # (AUTO) 0.1 /CMM (0.0-0.2); BASOPHILS % (AUTO) 0.9 % (0.0-2.0); EOSINOPHILS % (AUTO) 3.2 % (0.0-6.0); HEMATOCRIT 29 % (33-45); HEMOGLOBIN 9.3 g/dL (11.5-14.8); LYMPHOCYTES # (AUTO) 2.5 /CMM (0.8-4.8); LYMPHOCYTES % (AUTO) 19.9 % (20.0-44.0); MEAN CORPUSCULAR HGB CONC 32 g/dl (31.0-36.0); MEAN CORPUSCULAR VOLUME 82 fL (82-100); MONOCYTES # (AUTO) 1.1 /CMM (0.1-1.30); MONOCYTES % (AUTO) 8.9 % (2.0-12.0); NEUTROPHILS # (AUTO) 8.5 /CMM (1.8-8.9); NEUTROPHILS % (AUTO) 67.1 % (43.0-81.0); PLATELET COUNT (AUTO) 509 /CMM (150-450); RED BLOOD CELL COUNT(AUTO) 3.53 MIL/uL (4.0-5.2); WHITE BLOOD COUNT (AUTO) 12.7 K/uL (4.3-11.0)
[2020-10-21 06:51] LABS: CALCIUM, SERUM 8.1 mg/dL (8.5-10.1); CREATININE 0.7 mg/dL (0.6-1.3); MAGNESIUM 1.9 mg/dL (1.8-2.4); POTASSIUM 5.5 mmol/L (3.5-5.1)
[2020-10-21] MEDS: BLOOD SUGAR DIAGNOSTIC 1 EACH STRIP IN SCH ×4 (06:55→21:37)
[2020-10-21] MEDS: INSULIN REGULAR, HUMAN 100 UNIT/ML 3 ML VIAL SQ PRN ×2 (06:57→12:59)
--- NOTE | 2020-10-21 07:20 | NUR ---
MS RN CLOSING NOTE PATIENT RESTING IN BED, ALERT AND ORIENTED X 4, PATIENT ABLE TO MAKE NEEDS KNOWN, NO COMPLAINTS OF PAIN AT THIS TIME. PATIENT STABLE ON ROOM AIR, NO S/S OF DISTRESS OR SHORTNESS OF BREATH NOTED. RIGHT UPPER ARM MIDLINE SALINE LOCKED. WOUND TREATMENT DONE. SAFETY MEASURES IN PLACE, CALL LIGHT WITHIN REACH, BED ALARM ON, BED LOCKED IN LOWEST POSITION. WILL ENDORSE TO DAY SHIFT NURSE FOR CONTINUITY OF CARE.
--- NOTE | 2020-10-21 07:39 | NUR ---
MS RN OPENING NOTE PATIENT IS IN BED RESTING, PATIENT IS IN NO ACUTE DISTRESS. PATIENT IS ON ROOM AIR TOLERATING WELL. PATIENT IS PAIN MEDICATION SEEKING. SAFETY PRECAUTIONS ARE ON, BED IS LOCKED IN THE LOWEST POSITION WITH SIDE RAILS UP, CALL LIGHT WITHIN REACH. WILL CONTINUE TO MONITOR CLOSELY THROUGHOUT THE SHIFT.
[2020-10-21 08:00] VITALS: BP 160/78
[2020-10-21 08:06] LABS: CANCER AG, 15-3 18.4 U/mL (0.0-25.0); IMMUNOGLOBULIN A, SERUM 580 mg/dL (87-352); IMMUNOGLOBULIN G, SERUM 2114 mg/dL (586-1602); IMMUNOGLOBULIN M, SERUM 76 mg/dL (26-217)
[2020-10-21] MEDS: PROSOURCE / PROSTAT (PYXIS) 30 ML UDC PO SCH ×3 (09:00→17:00)
[2020-10-21] MEDS: VANCOMYCIN HCL 0.75 GM in IV D5W 250 ML IV SCH ×2 (09:08→21:19)
[2020-10-21] MEDS: DOCUSATE SODIUM 100 MG CAPSULE PO SCH ×2 (09:09→17:00)
[2020-10-21] MEDS: PANTOPRAZOLE 40 MG TABLET.DR PO SCH (09:10)
[2020-10-21] MEDS: AMLODIPINE BESYLATE 5 MG TABLET PO SCH (09:13)
[2020-10-21] MEDS: THERAHONEY GEL 1.5 OZ TUBE TP SCH ×2 (09:30→09:31)
[2020-10-21] MEDS: HYDROGEL DRESSING 90 GM TUBE TP SCH (09:31)
[2020-10-21] MEDS: DAKINS QUARTER STRENGTH (0.125%) 480 ML BOTTLE TOP SCH (09:31)
[2020-10-21] MEDS: CEFEPIME 1 GM in IV D5W 50 ML IV SCH ×2 (10:00→20:22)
[2020-10-21] MEDS ORDERED: SULF1TAB48 PO (10:13)
[2020-10-21] MEDS ORDERED: LEVO500T90 PO (10:13)
--- NOTE | 2020-10-21 10:28 | NUR ---
WOUND CARE CONSULT: PT HAS BEEN REFUSING SKIN ASSESSMENT. DISCUSSED WITH LEON NARVAEZ N.P. AND PT TO BE DISCHARGED. PT IS ON [place] ISOFLEX LOW AIRLOSS BED. WILL SEE PT PT CONDITION PERMITS.
[2020-10-21] MEDS: SOD FERRIC GLUC 125 MG in IV NS 0.9% 100 ML IV SCH (14:12)
[2020-10-21 16:00] VITALS: BP 132/62
--- NOTE | 2020-10-21 16:05 | NUR ---
MS RN NOTE PATIENT IS BEING INCOMPLIANT WITH MEDICATIONS, WITH WOUND CARE, PICTURES OF WOUNDS, PATIENT DOES NOT WANT TO BE CLEANING AFTER COUPLE OF ATTEMPT. PATIENT DID NOT EAT LUNCH. REFUSED PICTURED OF THE WOUNDS TO BE TAKEN. PATIENT AGREED FOR THE WOUND PICTURES TO BE TAKEN AFTER MORPHINE INJECTION, AFTER RETURNING TO TAKE PICTURES PATIENT REFUSED AGAIN.
--- NOTE | 2020-10-21 16:13 | NUR ---
Engineering Technologist note: Per CM Lori, marriage and family social worker requested to discuss discharge plans with patient. Patient requested alternative assisted living placement option that is wheelchair accessible. Patient stated that if alternative options are unavailable, patient is willing to return to prior living arrangement at [facility] ([address] [place], [place]; ) No further SS intervention at this time, however, SW will remain available as needed.
--- NOTE | 2020-10-21 17:48 | NUR ---
MS RN NOTE PATIENTS BLOOD SUGAR IS 43, DEXTROSE 50 GIVEN ALONG WITH ORANGE JUICE AND ICE CREAM, WILL REASSESS.
--- NOTE | 2020-10-21 18:23 | NUR ---
MS RN NOTE AFTER ADMINISTERING DEXTROSE 50 PATIENTS BLOOD SUGAR WENT UP TO 149
--- NOTE | 2020-10-21 18:39 | NUR ---
MS RN CLOSING NOTE PATIENT IS IN BED RESTING, PATIENT IS IN NO ACUTE DISTRESS. PATIENT IS ON ROOM AIR TOLERATING WELL. PATIENT IS PAIN MEDICATION SEEKING. SAFETY PRECAUTIONS ARE ON, BED IS LOCKED IN THE LOWEST POSITION WITH SIDE RAILS UP, CALL LIGHT WITHIN REACH. ENDORSE PATIENT TO WINDOW/DISTRIBUTION CLERK NURSE FOR MELVIN.
--- NOTE | 2020-10-21 19:56 | NUR ---
MS RN OPENING NOTE RECEIVED PT AWAKE IN BED. A/O X4. PT STABLE ON ROOM AIR. NO SOB OR S/S RESPIRATORY DISTRESS NOTED. PT HAS NO C/O PAIN AT THIS TIME. MIDLINE NOTED IN KAVITA #18 SALINE-LOCKED, INTACT AND PATENT. PT REFUSED WOUND PHOTOS AT THIS TIME. SAFETY MEASURES MAINTAINED. BED IN LOWEST LOCKED POSITION, HOB ELEVATED, SIDE RAILS UP X2. CALL LIGHT AND TABLE WITHIN REACH. WILL CONTINUE WITH PLAN OF CARE.
[2020-10-21 20:00] VITALS: BP 149/74
--- NOTE | 2020-10-21 21:27 | NUR ---
MS RN PAIN PT C/O ACHING PAIN IN BILATERAL LEGS, RATED 9/10 ON 0-10 PAIN SCALE. VSS. PER PT REQUEST, ADMINISTERED MORPHINE SULFATE 2 MG IV Q6H PRN FOR PAIN. WILL CONTINUE TO MONITOR PT.
[2020-10-21] MEDS: ONDANSETRON HCL/PF 4 MG/2 ML VIAL IVP PRN (21:41)
--- NOTE | 2020-10-21 21:41 | NUR ---
PT C/O NAUSEA. NO EMESIS NOTED AT THIS TIME. PER PT REQUEST, ADMINISTERED ZOFRAN 4MG IVP Q6H PRN FOR NAUSEA/VOMITING. WILL CONTINUE TO MONITOR PT.
[2020-10-21] MEDS: INSULIN GLARGINE, 100 UNIT/ML CARTRIDGE SQ SCH (22:00)
--- NOTE | 2020-10-21 22:07 | NUR ---
BS 106. PT STATED THAT SHE HAD NO APPETITE FOR DINNER. WITHHELD LANTUS 12 UNITS SQ HS AT THIS TIME. ORANGE JUICE GIVEN. WILL CONTINUE TO MONITOR.
[2020-10-22] MEDS: clonazePAM 0.5 MG TABLET PO PRN (01:43)
[2020-10-22] MEDS: BLOOD SUGAR DIAGNOSTIC 1 EACH STRIP IN SCH ×3 (06:55→16:34)
[2020-10-22] MEDS: INSULIN REGULAR, HUMAN 100 UNIT/ML 3 ML VIAL SQ PRN ×3 (06:57→17:05)
--- NOTE | 2020-10-22 07:18 | NUR ---
MS RN CLOSING NOTE PT IS IN BED WITH EYES CLOSED, EASILY AROUSED. A/O X4. PT STABLE ON ROOM AIR. NO SOB OR S/S RESPIRATORY DISTRESS NOTED. PT HAS NO C/O PAIN AT THIS TIME. MIDLINE NOTED IN KAVITA #18 SALINE-LOCKED, INTACT AND PATENT. ALL NEEDS HAVE BEEN MET. PAIN MANAGEMENT AND WOUND CARE ADMINISTERED PER ORDER. PT REPOSITIONED Q2H AND PRN. SAFETY PRECAUTIONS MAINTAINED AT ALL TIMES. BED IN LOWEST LOCKED POSITION, HOB ELEVATED, SIDE RAILS UP X2. CALL LIGHT AND TABLE WITHIN REACH. WILL ENDORSE TO ONCOMING NURSE FOR MELVIN.
--- NOTE | 2020-10-22 07:33 | NUR ---
MS RN OPENING NOTES PATIENT IS IN BED SLEEPING, EYES CLOSED, ABLE TO BE AWAKENED. A/O X4, ABLE TO MAKE NEEDS KNOWN. BREATHING EVEN AND UNLABORED, TOLERATING ROOM AIR. MIDLINE IN KAVITA #18 INTACT AND PATENT. BREAKFAST AT BEDSIDE, ADVISED TO EAT WHEN POSSIBLE. SAFETY PRECAUTIONS IN PLACE. WILL CONTINUE TO MONITOR.
[2020-10-22] MEDS: PANTOPRAZOLE 40 MG TABLET.DR PO SCH (07:52)
[2020-10-22 08:00] VITALS: BP 154/74
[2020-10-22 08:07] LABS: CALCIUM, SERUM 8.1 mg/dL (8.5-10.1); CREATININE 0.6 mg/dL (0.6-1.3); POTASSIUM 5.6 mmol/L (3.5-5.1)
[2020-10-22 08:07] LABS: *SPE A/G RATIO 0.4 (0.7-1.7); *SPE ALBUMIN 1.6 g/dL (2.9-4.4); *SPE ALPHA-1-GLOBULIN 0.3 g/dL (0.0-0.4); *SPE ALPHA-2-GLOBULIN 0.9 g/dL (0.4-1.0); *SPE BETA GLOBULIN 1.1 g/dL (0.7-1.3); *SPE GLOBULIN, TOTAL 4.3 g/dL (2.2-3.9); *SPE M-SPIKE Not Observed g/dL (Not Observed)
[2020-10-22] MEDS: PROSOURCE / PROSTAT (PYXIS) 30 ML UDC PO SCH ×3 (08:36→16:00)
[2020-10-22] MEDS: CEFEPIME 1 GM in IV D5W 50 ML IV SCH (08:40)
[2020-10-22] MEDS: DOCUSATE SODIUM 100 MG CAPSULE PO SCH ×2 (08:53→16:24)
[2020-10-22] MEDS: AMLODIPINE BESYLATE 5 MG TABLET PO SCH (08:54)
[2020-10-22] MEDS: VANCOMYCIN HCL 0.75 GM in IV D5W 250 ML IV SCH (09:47)
[2020-10-22] MEDS: diphenhydrAMINE HCL 25 MG CAPSULE PO PRN (09:47)
[2020-10-22] MEDS: MORPHINE SULFATE INJ 2 MG/ML DISP.SYRIN IV PRN (09:48)
[2020-10-22] MEDS: HYDROGEL DRESSING 90 GM TUBE TP SCH (09:53)
[2020-10-22] MEDS: THERAHONEY GEL 1.5 OZ TUBE TP SCH ×2 (09:54)
[2020-10-22] MEDS: DAKINS QUARTER STRENGTH (0.125%) 480 ML BOTTLE TOP SCH (09:54)
--- NOTE | 2020-10-22 11:00 | NUR ---
RN NOTES PATIENT REQUESTED FOR PUDDING AND MILK, PROVIDED TO PATIENT; GIVEN PAIN MEDICATION AND BENADRYL WELL. CURRENTLY RESTING IN BED WATCHING TV. WILL CONTINUE TO MONITOR.
--- NOTE | 2020-10-22 12:51 | NUR ---
RN NOTES PATIENT WAS SEEN BY DR. GAMBINO, INSTALL AND REPAIR TECHNICIAN, W/ ORDER FOR STAT URINE TEST. PER MD, OK TO DO STRAIGHT CATH TO OBTAIN SAMPLE. ASKED PATIENT IF OKAY TO OBTAIN URINE SAMPLE AT THIS TIME BUT PATIENT STATED TO GET IT LATER. WILL CONTINUE TO MONITOR.
[2020-10-22] MEDS: SOD FERRIC GLUC 125 MG in IV NS 0.9% 100 ML IV SCH (13:56)
--- NOTE | 2020-10-22 14:04 | NUR ---
RN NOTES PATIENT SEEN RESTING IN BED AT THIS TIME; IV IRON ADMINISTERED, INFUSING WELL.
[2020-10-22 16:00] VITALS: BP 134/68
--- NOTE | 2020-10-22 16:49 | NUR ---
RN NOTES PATIENT W/ SCHEDULED GLUCERNA SHAKE; ASKED PATIENT IF SHE WOULD LIKE TO TAKE IT BUT PATIENT REFUSED, STATING THAT "IT TASTES SYNTHETIC". PATIENT ALSO REFUSES TO TAKE PROSTAT SUPPLEMENT. PATIENT IS OKAY W/ ALTERNATIVE SNACKS INSTEAD. RIGHT TO REFUSE RESPECTED. WILL CONTINUE TO MONITOR.
[2020-10-22] MEDS ORDERED: GLUCERNA SHAKE 237 ML CAN PO SCH (17:00)
[2020-10-22] MEDS ORDERED: CLOTRIMAZOLE 1% 15 GM TUBE TP SCH (18:00)
--- NOTE | 2020-10-22 18:15 | NUR ---
RN NOTES ATTEMPTED TO CALL [facility] ([phone]) TO GIVE REPORT BUT NO RESPONSE; LEFT MESSAGE.
--- NOTE | 2020-10-22 19:10 | NUR ---
INDUSTRIAL ELECTRICAL TECHNICIAN NOTES PATIENT W/ ORDER FOR DISCHARGE TO SNF ([facility]); TRIED TO GIVE REPORT X2 BUT NO ONE ANSWERED. EMT'S MADE AWARE. PATIENT HAS BED AVAILABLE AT ROOM 230. PATIENT REFUSED TO SIGN DISCHARGE FORM AND BELONGINGS LIST FORM WELL FINAL BODY CHECK AND PICTURES. IV LINE LEFT INTACT FOR NEXT FACILITY. BELONGINGS TAKEN BY PATIENT W/ EMT'S. PATIENT TAKEN VIA GURNEY. CHARGE NURSE AND MD AWARE OF DISCHARGE.
[2020-10-23] MEDS ORDERED: VANCOMYCIN 1 GM in IV D5W 250 ML IV SCH
== END 2020-10-22 19:10 | DRG 720 ==
LOC: ER 01:11 → TELE 08:32 → MED 10:07
PROVIDERS: ADMIT Nurse Practitioner Acute Care; ATTEND Nurse Practitioner Acute Care
PROC: 0JBR0ZZ Excision of Left Foot Subcutaneous Tissue and Fascia, Open Approach (ICD-10-PCS; 2020-10-18)
PROC: 05HB33Z Insertion of Infusion Device into Right Basilic Vein, Percutaneous Approach (ICD-10-PCS; principal; 2020-10-20)
DX: A41.9 Sepsis, unspecified organism (principal); N17.0 Acute kidney failure with tubular necrosis; E43 Unspecified severe protein-calorie malnutrition; J90 Pleural effusion, not elsewhere classified; L89.304 Pressure ulcer of unspecified buttock, stage 4; G82.20 Paraplegia, unspecified; F14.11 Cocaine abuse, in remission; D50.9 Iron deficiency anemia, unspecified; I87.312 Chronic venous hypertension (idiopathic) with ulcer of left lower extremity; E86.0 Dehydration; E11.21 Type 2 diabetes mellitus with diabetic nephropathy; E11.40 Type 2 diabetes mellitus with diabetic neuropathy, unspecified; N39.0 Urinary tract infection, site not specified; G89.29 Other chronic pain; Z88.8 Allergy status to other drugs, medicaments and biological substances; Z79.899 Other long term (current) drug therapy; B96.1 Klebsiella pneumoniae [K. pneumoniae] as the cause of diseases classified elsewhere; E87.5 Hyperkalemia; J98.11 Atelectasis; K57.30 Diverticulosis of large intestine without perforation or abscess without bleeding; I87.2 Venous insufficiency (chronic) (peripheral); I87.8 Other specified disorders of veins; L97.429 Non-pressure chronic ulcer of left heel and midfoot with unspecified severity; L97.329 Non-pressure chronic ulcer of left ankle with unspecified severity; N63.10 Unspecified lump in the right breast, unspecified quadrant; I10 Essential (primary) hypertension; Z59.0 Homelessness; Z91.14 Patient's other noncompliance with medication regimen; Z87.891 Personal history of nicotine dependence; E11.65 Type 2 diabetes mellitus with hyperglycemia; N64.89 Other specified disorders of breast; X58.XXXA Exposure to other specified factors, initial encounter; Y92.9 Unspecified place or not applicable; S90.821A Blister (nonthermal), right foot, initial encounter; Z96.641 Presence of right artificial hip joint; Z91.19 Patient's noncompliance with other medical treatment and regimen; Z99.3 Dependence on wheelchair; E83.42 Hypomagnesemia; E11.51 Type 2 diabetes mellitus with diabetic peripheral angiopathy without gangrene; E11.621 Type 2 diabetes mellitus with foot ulcer; E11.622 Type 2 diabetes mellitus with other skin ulcer; E03.9 Hypothyroidism, unspecified; L03.115 Cellulitis of right lower limb; L03.116 Cellulitis of left lower limb; R59.0 Localized enlarged lymph nodes
CPT/HCPCS: 36415; 71045-TC; 71260-TC; 76642-RT-TC; 80048-TC; 80076-TC; 80202-TC; 81001; 82378; 82728-TC; 82784; 82962-TC; 83540-TC; 83690-TC; 83735-TC; 84100-TC; 84155; 84165; 84436-TC; 84443-TC; 84484-TC; 85025-TC; 85730-TC; 86300; 86334; 87081-TC; 87086-TC; A4216; A6248; A6253; C9803; G0378; J0692; J0696; J1815; J2270; J2405; J2543; J2916; J3370; J3475; J7030; J7040; J7050; J7060; P9047; Q0162; Q0163; Q9967